=== PATIENT | male | born 1965 | race Caucasian/White ===

== ENCOUNTER 2017-04-21 16:59 | Inpatient (IN) | payer BC ==
[~2017-04-21] VITALS: Ht 172.7 cm; Wt 142.3 kg
[~2017-04-21 16:59] MED LIST: ALLO300T2 PO; EZET10TA38 PO; GLIM4TAB42 PO; INSUINJ37 SC; METO-159 PO; PIOG15TA23 PO; SIMV-13 PO; SITA100T7 PO
[2017-04-21] MEDS ORDERED: ACETAMINOPHEN 500 MG TAB PO ONE ×2 (17:01→17:15)
[2017-04-21 17:44] LABS: Basophils # (auto) 0 uL; Basophils % (auto) 0.5 % (0.0-2.0); Eosinophils # (auto) 0 uL; Eosinophils % (auto) 0.7 % (0.0-7.0); Hematocrit 45.1 % (41.0-53.0); Hemoglobin 15.2 g/dL (13.5-17.5); Lymphocytes # (auto) 0.7 uL; Lymphocytes % (auto) 13.8 % (10.0-50.0); Mean Corpuscular Hemoglobin 30.7 pg (28.0-32.0); Mean Corpuscular Hgb Conc. 33.7 g/dL (32.0-36.0); Mean Platelet Volume 8.6 fL (7.4-10.4); Monocytes # (auto) 0.5 uL; Monocytes % (auto) 11.1 % (0.0-12.0); Neutrophils # (auto) 3.5 uL; Neutrophils % (auto) 73.9 % (37.0-80.0); Platelet Count (auto) 191 10^3/uL (140-450); Red Cell Distribution Width 13.8 % (11.6-16.0); White Blood Cell 4.8 10^3/uL (4.4-10.8)
[2017-04-21 17:58] LABS: BUN/Creatinine Ratio 12.1; Potassium 3.7 mmol/L (3.5-5.1)
[2017-04-21 18:00] LABS: Bilirubin, Total 0.7 mg/dL (0.2-1.0)
[2017-04-21 22:39] LABS: Urine Bilirubin Negative (Negative); Urine Blood 1+ /uL (Negative); Urine Color Yellow (Yellow); Urine Glucose 4+ mg/dL (Normal); Urine Ketone Negative (Negative); Urine Mucus FEW (None Seen); Urine Nitrite Negative (Negative); Urine RBC 4 /hpf (0 - 3); Urine Squamous Epithelial Cell FEW /hpf (<5); Urine Urobilinogen Normal (Negative)
[2017-04-21] MEDS ORDERED: SODIUM CHLORIDE 0.9% 1,000 ML IV ONE (23:30)
[2017-04-21] MEDS ORDERED: cefTRIAXone 1GM/50ML D5W 50 ML IV ONE (23:30)
[2017-04-21] MEDS ORDERED: AZITHROMYCIN 500MG/D5W 250ML 250 ML IV ONE (23:30)
[2017-04-22] VITALS (8 sets, daily range): BP systolic 111–134; BP diastolic 64–73
[2017-04-22] MEDS ORDERED: IPRATROPIUM BROM 0.5 MG/2.5ML INH SOL NEB PRN (01:30)
[2017-04-22] MEDS ORDERED: MORPHINE SULF INJ 2 MG/ML SYRINGE 1ML IV PRN (01:30)
[2017-04-22] MEDS ORDERED: NITROGLYCERIN 0.4 MG SL TAB SL PRN (01:30)
[2017-04-22] MEDS ORDERED: DOCUSATE SOD 100 MG CAP PO PRN (01:30)
[2017-04-22] MEDS ORDERED: DEXTROSE (50%) 50ML SYRG IV PRN (01:30)
[2017-04-22] MEDS ORDERED: PNEUMOCOCCAL VACC POLYS 25 MCG/0.5 ML VIAL IM ONE (01:30)
[2017-04-22] MEDS ORDERED: ONDANSETRON HCL 4 MG/2 ML VIAL IV PRN (01:30)
[2017-04-22] MEDS ORDERED: ALBUTEROL SULF 2.5 MG/0.5ML(0.5%) NEB SOLN NEB PRN (01:30)
[2017-04-22] MEDS ORDERED: LEVOFLOXACIN 750MG 150 ML IV SCH (02:00)
[2017-04-22] MEDS: ACETAMINOPHEN 325 MG TAB PO PRN ×2 (02:12→16:22)
[2017-04-22] MEDS: SODIUM CHLORIDE 0.9% 1,000 ML IV SCH ×2 (02:27→10:35)
[2017-04-22] MEDS: ACCU-CHEK COMFORT CURVE STRIP VI SCH ×4 (06:42→22:13)
[2017-04-22] MEDS: InsuLIN REG 1unit/0.01ml Soln (100units/ml) SC SCH ×4 (06:43→22:28)
[2017-04-22] MEDS ORDERED: FURO40TA4 PO (07:11)
[2017-04-22] MEDS ORDERED: METOPROLOL TARTRATE 50 MG TAB PO SCH (10:00)
[2017-04-22] MEDS: Sitagliptin (Januvia) 100 MG TAB PO SCH (10:00)
[2017-04-22] MEDS: ATORVASTATIN 20 MG TAB PO SCH (10:35)
[2017-04-22] MEDS: ALLOPURINOL 300 MG TAB PO SCH (10:36)
[2017-04-22] MEDS ORDERED: GLIMEPIRIDE 2 MG TAB PO ONE (12:30)
[2017-04-22] MEDS ORDERED: POTASSIUM CHL 10 Meq TABLET PO ONE (12:30)
[2017-04-22] MEDS ORDERED: cefTRIAXone 1GM/50ML D5W 50 ML IV ONE (12:30)
[2017-04-22] MEDS ORDERED: FUROSEMIDE 40 MG/4 ML VIAL IV ONE (12:30)
[2017-04-22] MEDS ORDERED: AZITHROMYCIN 250 MG TAB PO ONE (18:00)
[2017-04-22] MEDS: METOPROLOL TARTRATE 50 MG TAB PO SCH (22:13)
[2017-04-23 05:00] VITALS: BP 120/62
[2017-04-23 05:50] LABS: Basophils # (auto) 0 uL; Basophils % (auto) 0.5 % (0.0-2.0); Eosinophils # (auto) 0.3 uL; Eosinophils % (auto) 5.7 % (0.0-7.0); Hemoglobin 14.4 g/dL (13.5-17.5); Lymphocytes # (auto) 1.4 uL; Lymphocytes % (auto) 27.8 % (10.0-50.0); Mean Corpuscular Hgb Conc. 33.5 g/dL (32.0-36.0); Mean Corpuscular Volume 92.5 fL (80.0-100.0); Monocytes # (auto) 0.7 uL; Monocytes % (auto) 13.6 % (0.0-12.0); Neutrophils # (auto) 2.6 uL; Neutrophils % (auto) 52.4 % (37.0-80.0); Platelet Count (auto) 196 10^3/uL (140-450)
[2017-04-23 06:04] LABS: BUN/Creatinine Ratio 14.2; Calcium 8.8 mg/dL (8.5-10.1); Potassium 4.2 mmol/L (3.5-5.1)
[2017-04-23] MEDS ORDERED: GLIMEPIRIDE 2 MG TAB PO SCH (07:00)
[2017-04-23] MEDS: ACCU-CHEK COMFORT CURVE STRIP VI SCH ×4 (07:11→20:00)
[2017-04-23] MEDS: InsuLIN REG 1unit/0.01ml Soln (100units/ml) SC SCH ×5 (07:12→23:53)
[2017-04-23 08:00] VITALS: BP 138/70
[2017-04-23 08:12] VITALS: BP 138/70
[2017-04-23] MEDS: cefTRIAXone 1GM/50ML D5W 50 ML IV SCH (08:57)
[2017-04-23] MEDS: POTASSIUM CHL 10 Meq TABLET PO SCH (08:57)
[2017-04-23] MEDS: ATORVASTATIN 20 MG TAB PO SCH (08:58)
[2017-04-23] MEDS: Sitagliptin (Januvia) 100 MG TAB PO SCH (08:58)
[2017-04-23] MEDS: METOPROLOL TARTRATE 50 MG TAB PO SCH ×2 (08:58→21:57)
[2017-04-23] MEDS ORDERED: FUROSEMIDE 40 MG/4 ML VIAL IV SCH (10:00)
[2017-04-23] MEDS ORDERED: cefTRIAXone 1GM/50ML D5W 50 ML IV ONE (11:11)
[2017-04-23 11:30] VITALS: BP 119/64
[2017-04-23] MEDS ORDERED: FUROSEMIDE 40 MG TAB PO ONE (12:15)
[2017-04-23] MEDS ORDERED: methylPREDNISolone SOD SUCC 40 MG/ML VL IV ONE (12:15)
[2017-04-23] MEDS ORDERED: GLIMEPIRIDE 2 MG TAB PO ONE (12:15)
[2017-04-23] MEDS: ALLOPURINOL 300 MG TAB PO SCH (12:56)
[2017-04-23] MEDS: AZITHROMYCIN 250 MG TAB PO SCH (12:56)
[2017-04-23 16:30] VITALS: BP 130/90
[2017-04-23] MEDS ORDERED: DEXTROSE (50%) 50ML SYRG IV PRN ×2 (17:15→21:15)
[2017-04-23] MEDS: methylPREDNISolone SOD SUCC 40 MG/ML VL IV SCH (21:56)
[2017-04-23] MEDS: GLIMEPIRIDE 2 MG TAB PO SCH (21:57)
[2017-04-23 22:09] VITALS: BP 131/71
[2017-04-23] MEDS: INSULIN DETEMIR(LEVEMIR) 1unit/0.01ml Soln (100units/ml) SC SCH (22:24)
[2017-04-24] MEDS: InsuLIN REG 1unit/0.01ml Soln (100units/ml) SC SCH ×3 (03:42→12:03)
[2017-04-24] MEDS ORDERED: ACCU-CHEK COMFORT CURVE STRIP VI SCH ×2 (04:00)
[2017-04-24 05:24] VITALS: BP 119/71
[2017-04-24 08:09] VITALS: BP 147/78
[2017-04-24] MEDS: cefTRIAXone 1GM/50ML D5W 50 ML IV SCH (08:35)
[2017-04-24] MEDS: ATORVASTATIN 20 MG TAB PO SCH (08:35)
[2017-04-24] MEDS: methylPREDNISolone SOD SUCC 40 MG/ML VL IV SCH (08:35)
[2017-04-24] MEDS: AZITHROMYCIN 250 MG TAB PO SCH (08:36)
[2017-04-24] MEDS: ALLOPURINOL 300 MG TAB PO SCH (08:36)
[2017-04-24] MEDS: METOPROLOL TARTRATE 50 MG TAB PO SCH (08:37)
[2017-04-24] MEDS: POTASSIUM CHL 10 Meq TABLET PO SCH (08:43)
[2017-04-24] MEDS: ACCU-CHEK COMFORT CURVE STRIP VI SCH ×3 (09:03→14:00)
[2017-04-24] MEDS: GLIMEPIRIDE 2 MG TAB PO SCH (09:03)
[2017-04-24] MEDS: INSULIN DETEMIR(LEVEMIR) 1unit/0.01ml Soln (100units/ml) SC SCH (09:05)
[2017-04-24] MEDS ORDERED: FUROSEMIDE 40 MG TAB PO SCH (10:00)
[2017-04-24] MEDS: Sitagliptin (Januvia) 100 MG TAB PO SCH (10:00)
[2017-04-24 11:28] VITALS: BP 130/77
[2017-04-24 12:10] VITALS: BP 147/78
[2017-04-24 15:27] VITALS: BP 130/77
== END 2017-04-24 15:25 | disposition home or self-care (01) | DRG 871 ==
LOC: ER 16:59 → TELE 17:00 → TELE-WESTW 04-22 03:21 → WEST WING 04-22 14:09
PROVIDERS: ADMIT Emergency Medicine; ATTEND Internal Medicine
PROC: 5A09457 Assistance with Respiratory Ventilation, 24-96 Consecutive Hours, Continuous Positive Airway Pressure (ICD-10-PCS; principal; 2017-04-21)
DX: A41.9 Sepsis, unspecified organism (principal); J18.9 Pneumonia, unspecified organism; I50.33 Acute on chronic diastolic (congestive) heart failure; Z68.42 Body mass index [BMI] 45.0-49.9, adult; I13.0 Hypertensive heart and chronic kidney disease with heart failure and stage 1 through stage 4 chronic kidney disease, or unspecified chronic kidney disease; F17.210 Nicotine dependence, cigarettes, uncomplicated; M10.9 Gout, unspecified; Z83.3 Family history of diabetes mellitus; E11.22 Type 2 diabetes mellitus with diabetic chronic kidney disease; E66.01 Morbid (severe) obesity due to excess calories; E78.5 Hyperlipidemia, unspecified; G47.30 Sleep apnea, unspecified; N18.3 Chronic kidney disease, stage 3 (moderate); Z90.89 Acquired absence of other organs; Z71.89 Other specified counseling; Z23 Encounter for immunization
CPT/HCPCS: 36415; 71010; 80048; 80053; 81001; 82962; 83036; 83605; 85025; 87040; 87070; 87081; 87205; 93306; 94660; 96365; 96375; J0696; J1815; J1956

== ENCOUNTER → 2018-03-18 | Day surgery (SDC) | payer BC ==
[2018-03-16 12:44] LABS: Urine WBC None Seen /hpf (0 - 3)
[2018-03-16 12:59] LABS: Basophils # (auto) 0.1 uL; Basophils % (auto) 1.2 % (0.0-2.0); Eosinophils # (auto) 0.3 uL; Eosinophils % (auto) 4.9 % (0.0-7.0); Hematocrit 45.2 % (41.0-53.0); Lymphocytes # (auto) 1.4 uL; Lymphocytes % (auto) 22.2 % (10.0-50.0); Mean Corpuscular Hemoglobin 31.3 pg (28.0-32.0); Mean Corpuscular Hgb Conc. 33.3 g/dL (32.0-36.0); Mean Corpuscular Volume 94.2 fL (80.0-100.0); Monocytes # (auto) 0.5 uL; Monocytes % (auto) 7.2 % (0.0-12.0); Neutrophils # (auto) 4.1 uL; Neutrophils % (auto) 64.5 % (37.0-80.0); Nucleated Red Blood Cells % 0.2 %; Platelet Count (auto) 178 10^3/uL (140-450); Red Cell Distribution Width 14.2 % (11.8-14.3); White Blood Cell 6.4 10^3/uL (4.4-10.8)
[2018-03-16 13:17] LABS: Urine Bacteria NONE SEEN /hpf (None Seen); Urine Blood Negative /uL (Negative)
[2018-03-16 13:18] LABS: INR 0.97 (0.9-1.15); Partial Thromboplastin Time 27.4 sec (22.64-33.71); Prothrombin Time 10.6 sec (9.37-12.3)
[2018-03-16 13:22] LABS: Albumin 3.5 g/dL (3.4-5.0); BUN/Creatinine Ratio 13.4; Bilirubin, Total 0.6 mg/dL (0.2-1.0); Potassium 4.8 mmol/L (3.5-5.1); Total Protein 7.6 g/dL (6.4-8.2)
[~2018-03-18] VITALS: Ht 172.7 cm; Wt 149.7 kg
[~2018-03-18] MED LIST changes: +ACCU-CHEK COMFORT CURVE STRIP VI ONE; +ASPI81TA27 PO; +BUPIVACAINE 0.25% INJ 50ML VIAL ONE; +CYCL1TAB18 PO; -EZET10TA38 PO; +FURO40TA4 PO; +GLYCOPYRROLATE 0.2 MG/ML 1ML VIAL ONE; +IBUP800T24 PO; -INSUINJ37 SC; +InsuLIN REG 1unit/0.01ml Soln (100units/ml) ONE; +LIDOCAINE 1% (LOCAL ANESTH.) PF 5ml SDV ONE; +METOCLOPRAMIDE HCL 5MG/ml INJ 2ml VIAL IV ONE; +METOCLOPRAMIDE HCL 5MG/ml INJ 2ml VIAL ONE; +MIDAZOLAM HCL 1MG/1ML-2 ML VIAL ONE; +MORPHINE SULFATE INJECTION 1 ML ONE; +NEOSTIGMINE 1 MG/ML INJ (10mg/10ML VIAL) ONE; +PROPOFOL 10 MG/ML 20 ML IV ONE; +ROCURONIUM 10MG/ML 10ML VIAL IV ONE; +SUCCINYLCHOLINE CHLORIDE 20 MG/ML 10ML VIAL IV ONE; +ceFAZolin 1GM/50ML 50 ML IV ONE; +fentaNYL CITRATE 100 MCG/2 ML VL ONE
[2018-03-18] MEDS: MORPHINE SULFATE 8mg/ml INJ SDV IV PRN ×4 (12:17→13:03)
[2018-03-18 12:47] VITALS: BP 128/85
== END ==
LOC: SUR 08:16
PROVIDERS: ATTEND Surgery
DX: K42.9 Umbilical hernia without obstruction or gangrene (principal); E66.01 Morbid (severe) obesity due to excess calories; N18.3 Chronic kidney disease, stage 3 (moderate); E11.22 Type 2 diabetes mellitus with diabetic chronic kidney disease; I12.9 Hypertensive chronic kidney disease with stage 1 through stage 4 chronic kidney disease, or unspecified chronic kidney disease; G47.33 Obstructive sleep apnea (adult) (pediatric); E78.5 Hyperlipidemia, unspecified; Z91.02 Food additives allergy status; Z88.8 Allergy status to other drugs, medicaments and biological substances; Z68.43 Body mass index [BMI] 50.0-59.9, adult; Z87.891 Personal history of nicotine dependence
CPT/HCPCS: 36415; 49585; 80053; 81001; 82962; 85025; 85610; 85730; J0330; J0690; J1815; J2250; J2270; J2704; J2765; J3010; J3490

== ENCOUNTER → 2018-08-24 | Outpatient (CLI) | payer BC ==
[~2018-08-24] MED LIST changes: -ACCU-CHEK COMFORT CURVE STRIP VI ONE; -BUPIVACAINE 0.25% INJ 50ML VIAL ONE; -GLYCOPYRROLATE 0.2 MG/ML 1ML VIAL ONE; -InsuLIN REG 1unit/0.01ml Soln (100units/ml) ONE; -LIDOCAINE 1% (LOCAL ANESTH.) PF 5ml SDV ONE; -METOCLOPRAMIDE HCL 5MG/ml INJ 2ml VIAL IV ONE; -METOCLOPRAMIDE HCL 5MG/ml INJ 2ml VIAL ONE; -MIDAZOLAM HCL 1MG/1ML-2 ML VIAL ONE; -MORPHINE SULFATE INJECTION 1 ML ONE; -NEOSTIGMINE 1 MG/ML INJ (10mg/10ML VIAL) ONE; -PROPOFOL 10 MG/ML 20 ML IV ONE; -ROCURONIUM 10MG/ML 10ML VIAL IV ONE; -SUCCINYLCHOLINE CHLORIDE 20 MG/ML 10ML VIAL IV ONE; -ceFAZolin 1GM/50ML 50 ML IV ONE; -fentaNYL CITRATE 100 MCG/2 ML VL ONE
[2018-08-24 08:42] LABS: Basophils # (auto) 0.1 uL; Basophils % (auto) 0.8 % (0.0-2.0); Eosinophils # (auto) 0.4 uL; Eosinophils % (auto) 6.1 % (0.0-7.0); Hematocrit 44.8 % (41.0-53.0); Lymphocytes # (auto) 1.9 uL; Lymphocytes % (auto) 28.2 % (10.0-50.0); Mean Corpuscular Hemoglobin 31.5 pg (28.0-32.0); Mean Corpuscular Hgb Conc. 33.5 g/dL (32.0-36.0); Mean Corpuscular Volume 93.9 fL (80.0-100.0); Monocytes # (auto) 0.6 uL; Monocytes % (auto) 8.6 % (0.0-12.0); Neutrophils # (auto) 3.7 uL; Neutrophils % (auto) 56.3 % (37.0-80.0); Platelet Count (auto) 176 10^3/uL (140-450); Red Blood Cells 4.77 10^6/uL (4.5-5.90); Red Cell Distribution Width 14.1 % (11.8-14.3); White Blood Cell 6.7 10^3/uL (4.4-10.8)
[2018-08-24 08:57] LABS: Albumin 3.4 g/dL (3.4-5.0); BUN/Creatinine Ratio 16.7; Bilirubin, Total 0.6 mg/dL (0.2-1.0); Calcium 8.9 mg/dL (8.5-10.1); Potassium 5.3 mmol/L (3.5-5.1); Total Protein 7.4 g/dL (6.4-8.2)
== END | disposition home or self-care (01) ==
LOC: LAB 07:31
PROVIDERS: ATTEND Family Medicine
DX: I10 Essential (primary) hypertension (principal); E11.65 Type 2 diabetes mellitus with hyperglycemia; E66.01 Morbid (severe) obesity due to excess calories; Z87.891 Personal history of nicotine dependence
CPT/HCPCS: 36415; 80053; 80061; 82607; 83036; 84443; 85025

== ENCOUNTER → 2019-04-07 | Outpatient (CLI) | payer BC ==
[2019-04-07 08:15] LABS: Urine Bacteria NONE SEEN /hpf (None Seen); Urine Blood Negative /uL (Negative); Urine Specific Gravity 1.017 (1.001-1.035); Urine WBC 1 /hpf (0 - 3)
[2019-04-07 08:17] LABS: Basophils # (auto) 0.1 uL; Basophils % (auto) 1.1 % (0.0-2.0); Eosinophils # (auto) 0.3 uL; Hematocrit 44.9 % (41.0-53.0); Hemoglobin 15.3 g/dL (13.5-17.5); Lymphocytes # (auto) 1.5 uL; Mean Corpuscular Hemoglobin 31.6 pg (28.0-32.0); Mean Corpuscular Hgb Conc. 34.2 g/dL (32.0-36.0); Mean Corpuscular Volume 92.5 fL (80.0-100.0); Monocytes # (auto) 0.5 uL; Monocytes % (auto) 8.5 % (0.0-12.0); Neutrophils # (auto) 3.1 uL; Neutrophils % (auto) 56.4 % (37.0-80.0); Nucleated Red Blood Cells % 0.1 %; Platelet Count (auto) 159 10^3/uL (140-450); Red Blood Cells 4.85 10^6/uL (4.5-5.90); Red Cell Distribution Width 14.2 % (11.8-14.3); White Blood Cell 5.5 10^3/uL (4.4-10.8)
[2019-04-07 08:54] LABS: Albumin 3.5 g/dL (3.4-5.0); BUN/Creatinine Ratio 19.4; Bilirubin, Total 0.6 mg/dL (0.2-1.0); Calcium 9.5 mg/dL (8.5-10.1); Total Protein 7.6 g/dL (6.4-8.2)
== END | disposition home or self-care (01) ==
LOC: LAB 07:14
PROVIDERS: ATTEND Family Medicine
DX: E11.69 Type 2 diabetes mellitus with other specified complication (principal); E67.8 Other specified hyperalimentation; I10 Essential (primary) hypertension; E66.01 Morbid (severe) obesity due to excess calories; E78.49 Other hyperlipidemia; E55.9 Vitamin D deficiency, unspecified
CPT/HCPCS: 36415; 80053; 80061; 81001; 82043; 82306; 82607; 83036; 84443; 85025

== ENCOUNTER → 2019-07-23 | Outpatient (CLI) | payer BC ==
[~2019-07-23] MED LIST changes: +ASPI-404 PO; -ASPI81TA27 PO
== END | disposition home or self-care (01) ==
LOC: LAB 07:08
PROVIDERS: ATTEND Internal Medicine
DX: Z12.5 Encounter for screening for malignant neoplasm of prostate (principal); E11.9 Type 2 diabetes mellitus without complications
CPT/HCPCS: 36415; 83036; 84153

== ENCOUNTER → 2019-10-13 | Outpatient (CLI) | payer BC | END | disposition home or self-care (01) | LOC: LAB 07:11 | PROVIDERS: ATTEND Internal Medicine | DX: E11.9 Type 2 diabetes mellitus without complications (principal); I10 Essential (primary) hypertension; E78.5 Hyperlipidemia, unspecified; Z87.891 Personal history of nicotine dependence; Z91.018 Allergy to other foods; Z91.048 Other nonmedicinal substance allergy status | CPT/HCPCS: 36415; 83036 ==

== ENCOUNTER → 2020-01-24 | Outpatient (CLI) | payer BC ==
[2020-01-24 09:00] LABS: Potassium 5.2 mmol/L (3.5-5.1)
[2020-01-24 09:14] LABS: Albumin 3.4 g/dL (3.4-5.0); BUN/Creatinine Ratio 14.3; Bilirubin, Total 0.5 mg/dL (0.2-1.0); Calcium 9.2 mg/dL (8.5-10.1); Total Protein 7.4 g/dL (6.4-8.2)
== END | disposition home or self-care (01) ==
LOC: LAB 07:37
PROVIDERS: ATTEND Internal Medicine
DX: Z12.11 Encounter for screening for malignant neoplasm of colon (principal); E11.22 Type 2 diabetes mellitus with diabetic chronic kidney disease; N18.3 Chronic kidney disease, stage 3 (moderate)
CPT/HCPCS: 36415; 80053; 83036

== ENCOUNTER → 2020-07-10 | Outpatient (CLI) | payer BC ==
[~2020-07-10] MED LIST changes: -ASPI-404 PO; +ASPI-543 PO; +CYCL10TA6 PO; -CYCL1TAB18 PO
[2020-07-10 07:08] LABS: Albumin 3.3 g/dL (3.4-5.0); BUN/Creatinine Ratio 13.9; Calcium 8.9 mg/dL (8.5-10.1); Potassium 4.2 mmol/L (3.5-5.1)
[2020-07-10 07:12] LABS: Bilirubin, Total 0.3 mg/dL (0.2-1.0); Total Protein 7.2 g/dL (6.4-8.2)
== END | disposition home or self-care (01) ==
LOC: LAB 06:40
PROVIDERS: ATTEND Internal Medicine
DX: E11.9 Type 2 diabetes mellitus without complications (principal); I10 Essential (primary) hypertension; E78.5 Hyperlipidemia, unspecified
CPT/HCPCS: 36415; 80053; 80061; 82043; 83036

== ENCOUNTER → 2020-08-10 | Outpatient (CLI) | payer BC ==
[2020-08-10 07:39] LABS: Calcium 9.2 mg/dL (8.5-10.1); Potassium 5.2 mmol/L (3.5-5.1)
[2020-08-10 07:41] LABS: BUN/Creatinine Ratio 18.4
== END | disposition home or self-care (01) ==
LOC: LAB 07:06
PROVIDERS: ATTEND Internal Medicine
DX: Z12.5 Encounter for screening for malignant neoplasm of prostate (principal); E11.9 Type 2 diabetes mellitus without complications; I10 Essential (primary) hypertension; M79.89 Other specified soft tissue disorders
CPT/HCPCS: 36415; 80048; 83880; 84153

== ENCOUNTER → 2020-10-13 | Outpatient (CLI) | payer BC ==
[2020-10-13 09:55] LABS: Potassium 4.4 mmol/L (3.5-5.1)
[2020-10-13 10:02] LABS: BUN/Creatinine Ratio 18.3; Calcium 9.3 mg/dL (8.5-10.1)
== END | disposition home or self-care (01) ==
LOC: LAB 07:06
PROVIDERS: ATTEND Internal Medicine
DX: E11.9 Type 2 diabetes mellitus without complications (principal)
CPT/HCPCS: 36415; 80048; 83036

== ENCOUNTER → 2021-01-29 | Outpatient (CLI) | payer BC ==
[~2021-01-29] MED LIST changes: -IBUP800T24 PO; +IBUP800T27 PO
[2021-01-29 07:53] LABS: Calcium 9.5 mg/dL (8.5-10.1)
[2021-01-29 08:46] LABS: BUN/Creatinine Ratio 16.4
== END | disposition home or self-care (01) ==
LOC: LAB 07:05
PROVIDERS: ATTEND Internal Medicine
DX: E11.9 Type 2 diabetes mellitus without complications (principal); I10 Essential (primary) hypertension; M25.511 Pain in right shoulder
CPT/HCPCS: 36415; 80048; 83036; 85652

== ENCOUNTER → 2021-06-29 | Outpatient (CLI) | payer BC | END | disposition home or self-care (01) | LOC: LAB 12:12 | PROVIDERS: ATTEND Ophthalmology | DX: D23.111 Other benign neoplasm of skin of right upper eyelid, including canthus (principal) ==

== ENCOUNTER → 2021-08-27 | Outpatient (CLI) | payer BC | END | disposition home or self-care (01) | LOC: LAB 06:45 | PROVIDERS: ATTEND Internal Medicine | DX: E11.9 Type 2 diabetes mellitus without complications (principal) | CPT/HCPCS: 36415; 83036; 84153 ==

== ENCOUNTER → 2021-10-23 | Outpatient (CLI) | payer BC ==
[~2021-10-23] MED LIST changes: +CYCL-839 PO; -CYCL10TA6 PO
[2021-10-23 08:08] LABS: Potassium 4.6 mmol/L (3.5-5.1)
[2021-10-23 08:17] LABS: Calcium 9.4 mg/dL (8.5-10.1)
== END | disposition home or self-care (01) ==
LOC: LAB 06:35
PROVIDERS: ATTEND Internal Medicine
DX: E11.9 Type 2 diabetes mellitus without complications (principal)
CPT/HCPCS: 36415; 80048

== ENCOUNTER → 2021-12-17 | Outpatient (CLI) | payer BC ==
[2021-12-17 10:30] LABS: Calcium 9.6 mg/dL (8.5-10.1); Potassium 4.9 mmol/L (3.5-5.1)
[2021-12-17 10:33] LABS: BUN/Creatinine Ratio 20.5
== END | disposition home or self-care (01) ==
LOC: LAB 08:54
PROVIDERS: ATTEND Internal Medicine
DX: E11.9 Type 2 diabetes mellitus without complications (principal)
CPT/HCPCS: 36415; 80048; 83036

== ENCOUNTER → 2022-01-07 | Outpatient (CLI) | payer BC | END | disposition home or self-care (01) | LOC: LAB 06:40 | PROVIDERS: ATTEND Podiatrist | DX: M65.871 Other synovitis and tenosynovitis, right ankle and foot (principal) | CPT/HCPCS: 36415; 82565; 84520 ==

== ENCOUNTER → 2022-01-17 | Day surgery (SDC) | payer BC ==
[2022-01-16 08:07] LABS: Urine Bacteria NONE SEEN /hpf (None Seen); Urine Blood Negative /uL (Negative); Urine Specific Gravity 1.019 (1.001-1.035); Urine WBC <1 /hpf (0 - 3)
[2022-01-16 08:16] LABS: INR 1.05 (0.9-1.15); Partial Thromboplastin Time 28.6 sec (23.6-33.0)
[2022-01-16 08:55] LABS: Basophils # (auto) 0 10 ^3/uL (0-0.2); Basophils % (auto) 0.7 % (0.0-2.0); Eosinophils # (auto) 0.4 10 ^3/uL (0-0.8); Eosinophils % (auto) 6.5 % (0.0-7.0); Hematocrit 43.3 % (41.0-53.0); Hemoglobin 14.3 g/dL (13.5-17.5); Lymphocytes # (auto) 1.4 10 ^3/uL (0.4-5.4); Lymphocytes % (auto) 21.9 % (10.0-50.0); Mean Corpuscular Hemoglobin 31.6 pg (28.0-32.0); Mean Corpuscular Hgb Conc. 33.1 g/dL (32.0-36.0); Mean Corpuscular Volume 95.6 fL (80.0-100.0); Monocytes # (auto) 0.7 10 ^3/uL (0-1.3); Monocytes % (auto) 11.4 % (0.0-12.0); Neutrophils # (auto) 3.8 10 ^3/uL (1.6-8.6); Neutrophils % (auto) 59.5 % (37.0-80.0); Nucleated Red Blood Cells % 0.1 %; Red Blood Cells 4.54 10^6/uL (4.5-5.90); Red Cell Distribution Width 14.3 % (11.8-14.3); White Blood Cell 6.5 10^3/uL (4.4-10.8)
[2022-01-16 09:48] LABS: Potassium 4.6 mmol/L (3.5-5.1)
[2022-01-16 09:54] LABS: Albumin 3.6 g/dL (3.4-5.0); BUN/Creatinine Ratio 15.2; Bilirubin, Total 0.5 mg/dL (0.2-1.0); Calcium 9.6 mg/dL (8.5-10.1); Total Protein 7.9 g/dL (6.4-8.2)
[~2022-01-17] VITALS: Ht 172.7 cm; Wt 156.5 kg
[~2022-01-17] MED LIST changes: -CYCL-839 PO; +DexAMETHasone SOD PHOS 10MG/1ML VIAL INJ ONE; +EPINEPHrine HCL 1 MG/1 ML AMP ONE; +GABA300C10 PO; -IBUP800T27 PO; +INS7030I SC; +INSLANTI SC; +LABETALOL HCL 5 MG/ML 4ML SYRINGE IV PRN; +LIDOCAINE 1% HCL (LOCAL ANESTH.) INJ 20ML MDV ONE; +LISI2.5T47 PO; +MIDAZOLAM HCL 2MG/2ML 2ml VIAL (1mg/ml) IV PRN; +MIDAZOLAM HCL 2MG/2ML 2ml VIAL (1mg/ml) ONE; +MORPHINE SULFATE 4 MG/ML SYR/VIAL IV PRN; +NIFE1TAB31 PO; +ONDANSETRON HCL 4 MG/2 ML VIAL IV PRN; +PROPOFOL 10 MG/ML 20 ML IV ONE; +ceFAZolin 1GM/50ML 150 ML IV ONE; +ePHEDrine SULFATE 50 MG/ML AMP IV PRN; +fentaNYL CITRATE 100 MCG/2 ML VL ONE; +hydrALAZINE HCL 20 MG/ML VL IV PRN
[2022-01-17 13:30] VITALS: BP 111/67
== END | disposition home or self-care (01) ==
LOC: SUR 08:47
PROVIDERS: ATTEND Urology
DX: A63.0 Anogenital (venereal) warts (principal); I10 Essential (primary) hypertension; E11.9 Type 2 diabetes mellitus without complications; E66.01 Morbid (severe) obesity due to excess calories; E11.40 Type 2 diabetes mellitus with diabetic neuropathy, unspecified; E78.5 Hyperlipidemia, unspecified; M10.9 Gout, unspecified; F17.200 Nicotine dependence, unspecified, uncomplicated; G47.30 Sleep apnea, unspecified; Z98.890 Other specified postprocedural states; Z20.822 Contact with and (suspected) exposure to COVID-19; Z68.32 Body mass index [BMI] 32.0-32.9, adult; Z79.899 Other long term (current) drug therapy; Z82.49 Family history of ischemic heart disease and other diseases of the circulatory system; Z83.42 Family history of familial hypercholesterolemia; Z82.5 Family history of asthma and other chronic lower respiratory diseases; Z82.69 Family history of other diseases of the musculoskeletal system and connective tissue; Z83.3 Family history of diabetes mellitus; Z83.2 Family history of diseases of the blood and blood-forming organs and certain disorders involving the immune mechanism
CPT/HCPCS: 36415; 54057; 80053; 81001; 82043; 82962; 85025; 85610; 85730; 88305; J0171; J0690; J1100; J2001; J2250; J2704; J3010; U0003

== ENCOUNTER → 2022-06-11 | Outpatient (CLI) | payer BC ==
[~2022-06-11] MED LIST changes: +DAPA1TAB4 PO; -DexAMETHasone SOD PHOS 10MG/1ML VIAL INJ ONE; -EPINEPHrine HCL 1 MG/1 ML AMP ONE; -LABETALOL HCL 5 MG/ML 4ML SYRINGE IV PRN; -LIDOCAINE 1% HCL (LOCAL ANESTH.) INJ 20ML MDV ONE; +MET50T PO; -MIDAZOLAM HCL 2MG/2ML 2ml VIAL (1mg/ml) IV PRN; -MIDAZOLAM HCL 2MG/2ML 2ml VIAL (1mg/ml) ONE; -MORPHINE SULFATE 4 MG/ML SYR/VIAL IV PRN; +NIFE1TAB30 PO; -ONDANSETRON HCL 4 MG/2 ML VIAL IV PRN; -PROPOFOL 10 MG/ML 20 ML IV ONE; -ceFAZolin 1GM/50ML 150 ML IV ONE; -ePHEDrine SULFATE 50 MG/ML AMP IV PRN; -fentaNYL CITRATE 100 MCG/2 ML VL ONE; -hydrALAZINE HCL 20 MG/ML VL IV PRN
[2022-06-11 09:10] LABS: Albumin 3.7 g/dL (3.4-5.0); Calcium 9.8 mg/dL (8.5-10.1)
[2022-06-11 09:14] LABS: BUN/Creatinine Ratio 16.1; Potassium 4.2 mmol/L (3.5-5.1); Total Protein 7.6 g/dL (6.4-8.2)
[2022-06-11 09:16] LABS: Bilirubin, Total 0.6 mg/dL (0.2-1.0)
== END | disposition home or self-care (01) ==
LOC: LAB 07:43
PROVIDERS: ATTEND Internal Medicine
DX: Z00.00 Encounter for general adult medical examination without abnormal findings (principal)
CPT/HCPCS: 36415; 80053; 82043; 83036

== ENCOUNTER 2022-06-13 09:47 | Day surgery (SDC) | payer BC ==
[2022-06-11 09:11] LABS: Urine WBC None Seen /hpf (0 - 3)
[2022-06-11 09:13] LABS: Basophils # (auto) 0.1 10 ^3/uL (0-0.2); Eosinophils # (auto) 0.4 10 ^3/uL (0-0.8); Eosinophils % (auto) 5.2 % (0.0-7.0); Hematocrit 46.1 % (41.0-53.0); Lymphocytes # (auto) 1.4 10 ^3/uL (0.4-5.4); Lymphocytes % (auto) 20.1 % (10.0-50.0); Mean Corpuscular Hemoglobin 30.8 pg (28.0-32.0); Mean Corpuscular Hgb Conc. 32.5 g/dL (32.0-36.0); Mean Corpuscular Volume 94.7 fL (80.0-100.0); Monocytes # (auto) 0.7 10 ^3/uL (0-1.3); Neutrophils # (auto) 4.4 10 ^3/uL (1.6-8.6); Neutrophils % (auto) 63.7 % (37.0-80.0); Red Blood Cells 4.87 10^6/uL (4.5-5.90); Red Cell Distribution Width 14.4 % (11.8-14.3); Urine Bacteria NONE SEEN /hpf (None Seen); Urine Blood Negative /uL (Negative); Urine Specific Gravity 1.014 (1.001-1.035); White Blood Cell 6.9 10^3/uL (4.4-10.8)
[2022-06-11 09:34] LABS: INR 0.98 (0.9-1.15); Partial Thromboplastin Time 28.5 sec (24.6-33.4)
[2022-06-11 09:35] LABS: Albumin 3.7 g/dL (3.4-5.0); Calcium 9.7 mg/dL (8.5-10.1); Potassium 4.4 mmol/L (3.5-5.1)
[2022-06-11 09:38] LABS: BUN/Creatinine Ratio 15.8
[2022-06-11 09:40] LABS: Bilirubin, Total 0.6 mg/dL (0.2-1.0); Total Protein 7.9 g/dL (6.4-8.2)
[~2022-06-13] VITALS: Ht 172.7 cm; Wt 146.1 kg
[~2022-06-13 09:47] MED LIST changes: -INS7030I SC; -METO-159 PO; -NIFE1TAB31 PO
[2022-06-13] MEDS ORDERED: ceFAZolin 1GM/50ML 100 ML IV ONE (10:53)
[2022-06-13] MEDS ORDERED: MIDAZOLAM HCL 2MG/2ML 2ml VIAL (1mg/ml) ONE (14:04)
[2022-06-13] MEDS ORDERED: fentaNYL CITRATE 100 MCG/2 ML VL ONE (14:04)
[2022-06-13] MEDS ORDERED: PROPOFOL 10 MG/ML 20 ML IV ONE (14:46)
[2022-06-13 15:30] VITALS: BP 114/68
[2022-06-13] MEDS ORDERED: SUCCINYLCHOLINE CHLORIDE 20 MG/ML 10ML VIAL IV ONE (16:55)
== END 2022-06-13 15:45 | disposition home or self-care (01) ==
LOC: SUR 09:47
PROVIDERS: ATTEND Urology
DX: A63.0 Anogenital (venereal) warts (principal); I10 Essential (primary) hypertension; E11.9 Type 2 diabetes mellitus without complications; E78.5 Hyperlipidemia, unspecified; M10.9 Gout, unspecified; E66.01 Morbid (severe) obesity due to excess calories; F17.200 Nicotine dependence, unspecified, uncomplicated; G47.30 Sleep apnea, unspecified; Z68.42 Body mass index [BMI] 45.0-49.9, adult; Z20.822 Contact with and (suspected) exposure to COVID-19; Z82.49 Family history of ischemic heart disease and other diseases of the circulatory system; Z83.6 Family history of other diseases of the respiratory system; Z82.69 Family history of other diseases of the musculoskeletal system and connective tissue; Z83.2 Family history of diseases of the blood and blood-forming organs and certain disorders involving the immune mechanism; Z81.0 Family history of intellectual disabilities
CPT/HCPCS: 36415; 54057; 80053; 81001; 82962; 85025; 85610; 85730; J0330; J0690; J2250; J2704; J3010; U0003

== ENCOUNTER → 2022-08-20 | Outpatient (CLI) | payer BC ==
[2022-08-20 07:49] LABS: BUN/Creatinine Ratio 16.6; Calcium 9.8 mg/dL (8.5-10.1)
== END | disposition home or self-care (01) ==
LOC: LAB 06:49
PROVIDERS: ATTEND Internal Medicine
DX: E11.9 Type 2 diabetes mellitus without complications (principal)
CPT/HCPCS: 36415; 80048; 83036

== ENCOUNTER → 2023-03-05 | Outpatient (CLI) | payer BC ==
[2023-03-05 07:52] LABS: Albumin 3.5 g/dL (3.4-5.0); Calcium 9.5 mg/dL (8.5-10.1); Potassium 4.2 mmol/L (3.5-5.1)
[2023-03-05 07:59] LABS: BUN/Creatinine Ratio 17.2 (10.0-20.0); Bilirubin, Total 0.3 mg/dL (0.2-1.0)
== END | disposition home or self-care (01) ==
LOC: LAB 07:00
PROVIDERS: ATTEND Internal Medicine
DX: E11.9 Type 2 diabetes mellitus without complications (principal); E78.5 Hyperlipidemia, unspecified
CPT/HCPCS: 36415; 80053; 80061; 82043; 83036

== ENCOUNTER → 2023-03-24 | Outpatient (CLI) | payer BC ==
[2023-03-24 11:06] LABS: Potassium 4.5 mmol/L (3.5-5.1)
[2023-03-24 11:11] LABS: Calcium 9.9 mg/dL (8.5-10.1); Uric Acid 4.7 mg/dL (3.5-7.2)
== END | disposition home or self-care (01) ==
LOC: LAB 09:25
PROVIDERS: ATTEND Internal Medicine
DX: E11.9 Type 2 diabetes mellitus without complications (principal); M79.642 Pain in left hand
CPT/HCPCS: 36415; 80048; 84550; 85652; 86431

== ENCOUNTER → 2023-07-21 | Outpatient (CLI) | payer BC ==
[~2023-07-21] MED LIST changes: +GABA-1250 PO; -GABA300C10 PO; -SIMV-13 PO; +SIMV40TA18 PO
[2023-07-21 07:43] LABS: Calcium 9.2 mg/dL (8.5-10.1); Potassium 4.6 mmol/L (3.5-5.1)
[2023-07-21 07:49] LABS: BUN/Creatinine Ratio 15.6 (10.0-20.0)
== END | disposition home or self-care (01) ==
LOC: LAB 06:46
PROVIDERS: ATTEND Internal Medicine
DX: E11.22 Type 2 diabetes mellitus with diabetic chronic kidney disease (principal); N18.30 Chronic kidney disease, stage 3 unspecified; E78.5 Hyperlipidemia, unspecified
CPT/HCPCS: 36415; 80048; 80061; 83036

== ENCOUNTER → 2023-12-03 | Outpatient (CLI) | payer BC ==
[2023-12-03 07:32] LABS: Anion Gap 7 (5-15); Carbon Dioxide 26 mmol/L (20-30); Chloride 105 mmol/L (98-107); Potassium 4.6 mmol/L (3.5-5.1); Sodium 138 mmol/L (136-145)
[2023-12-03 07:33] LABS: Calcium 9.4 mg/dL (8.5-10.1)
[2023-12-03 07:38] LABS: BUN/Creatinine Ratio 11.3 (10.0-20.0); Blood Urea Nitrogen 14 mg/dL (9-23); Glucose 212 mg/dL (74-106); Triglycerides 260 mg/dL (< 150)
[2023-12-03 07:39] LABS: LDL Cholesterol 50 mg/dL (< 100)
[2023-12-03 07:40] LABS: Cholesterol 110 mg/dL (< 200); HDL Cholesterol 33 mg/dL (40-59)
[2023-12-03 08:34] LABS: Creatinine, Urine 78.42 mg/dL (30.0-125.0)
== END | disposition home or self-care (01) ==
LOC: LAB 06:44
PROVIDERS: ATTEND Internal Medicine
DX: E11.22 Type 2 diabetes mellitus with diabetic chronic kidney disease (principal); N18.30 Chronic kidney disease, stage 3 unspecified
CPT/HCPCS: 36415; 80048; 80061; 82043; 82570; 83036

== ENCOUNTER → 2024-01-26 | Outpatient (CLI) | payer BC ==
[2024-01-26 08:02] LABS: Anion Gap 7 (5-15); Calcium 9.5 mg/dL (8.5-10.1); Carbon Dioxide 25 mmol/L (20-30); Chloride 104 mmol/L (98-107); Potassium 4.8 mmol/L (3.5-5.1); Sodium 136 mmol/L (136-145)
[2024-01-26 08:08] LABS: BUN/Creatinine Ratio 13.2 (10.0-20.0); Blood Urea Nitrogen 18 mg/dL (9-23); Glucose 236 mg/dL (74-106)
== END | disposition home or self-care (01) ==
LOC: LAB 06:48
PROVIDERS: ATTEND Internal Medicine
DX: E11.9 Type 2 diabetes mellitus without complications (principal)
CPT/HCPCS: 36415; 80048

== ENCOUNTER → 2024-03-22 | Outpatient (CLI) | payer BC | END | disposition home or self-care (01) | LOC: XYW 13:24 | PROVIDERS: ATTEND Internal Medicine | DX: I51.89 Other ill-defined heart diseases (principal); R60.0 Localized edema | CPT/HCPCS: 93306 ==

== ENCOUNTER → 2024-03-26 | Outpatient (CLI) | payer BC | END | disposition home or self-care (01) | LOC: LAB 15:00 | PROVIDERS: ATTEND Family Medicine | DX: D48.5 Neoplasm of uncertain behavior of skin (principal) ==

== ENCOUNTER → 2024-03-30 | Outpatient (CLI) | payer BC ==
[2024-03-30 15:24] LABS: Basophils # (auto) 0.1 10 ^3/uL (0-0.2); Eosinophils # (auto) 0.4 10 ^3/uL (0-0.8); Eosinophils % (auto) 4.1 % (0.0-7.0); Hematocrit 41.7 % (41.0-53.0); Hemoglobin 14.1 g/dL (13.5-17.5); Lymphocytes % (auto) 21.7 % (10.0-50.0); Mean Corpuscular Hemoglobin 32.6 pg (28.0-32.0); Mean Corpuscular Hgb Conc. 33.9 g/dL (32.0-36.0); Mean Corpuscular Volume 96.2 fL (80.0-100.0); Monocytes % (auto) 11.1 % (0.0-12.0); Neutrophils # (auto) 5.7 10 ^3/uL (1.6-8.6); Neutrophils % (auto) 62.1 % (37.0-80.0); Nucleated Red Blood Cells % 0.1 %; Red Blood Cells 4.33 10^6/uL (4.5-5.90); Red Cell Distribution Width 13.3 % (11.8-14.3); White Blood Cell 9.2 10^3/uL (4.4-10.8)
[2024-03-30 15:40] LABS: Alanine Aminotransferase 28 U/L (7-40); Albumin 4.4 g/dL (3.2-4.8); Alkaline Phosphatase 61 U/L (46-116); Anion Gap 4 (5-15); Aspartate Aminotransferase 22 U/L (13-40); BUN/Creatinine Ratio 15.3 (10.0-20.0); Bilirubin, Total 0.5 mg/dL (0.2-1.0); Blood Urea Nitrogen 20 mg/dL (9-23); Calcium 10.1 mg/dL (8.7-10.4); Carbon Dioxide 27 mmol/L (20-30); Chloride 103 mmol/L (98-107); Glucose 167 mg/dL (74-106); Potassium 4.4 mmol/L (3.5-5.1); Sodium 134 mmol/L (136-145); Total Protein 7.4 g/dL (5.7-8.2)
== END | disposition home or self-care (01) ==
LOC: LAB 15:04
PROVIDERS: ATTEND Ophthalmology
DX: H25.12 Age-related nuclear cataract, left eye (principal)
CPT/HCPCS: 36415; 80053; 85025; 87086

== ENCOUNTER → 2024-07-09 | Outpatient (CLI) | payer BC | END | disposition home or self-care (01) | LOC: LAB 12:11 | PROVIDERS: ATTEND Family Medicine | DX: D48.5 Neoplasm of uncertain behavior of skin (principal) ==

== ENCOUNTER → 2024-09-02 | Outpatient (CLI) | payer BC ==
[2024-09-02 08:14] LABS: LDL Cholesterol 47 mg/dL (< 100); Triglycerides 259 mg/dL (< 150)
[2024-09-02 08:15] LABS: Cholesterol 108 mg/dL (< 200)
[2024-09-02 08:16] LABS: HDL Cholesterol 35 mg/dL (40-59)
== END | disposition home or self-care (01) ==
LOC: LAB 06:54
PROVIDERS: ATTEND Internal Medicine
DX: E11.9 Type 2 diabetes mellitus without complications (principal); E78.5 Hyperlipidemia, unspecified; B35.1 Tinea unguium
CPT/HCPCS: 36415; 80061; 82607; 83036

== ENCOUNTER → 2024-12-17 | Outpatient (CLI) | payer BC ==
[2024-12-17 07:22] LABS: Alanine Aminotransferase 22 U/L (7-40); Albumin 4.7 g/dL (3.2-4.8); Alkaline Phosphatase 64 U/L (46-116); Anion Gap 6 (5-15); Aspartate Aminotransferase 27 U/L (13-40); BUN/Creatinine Ratio 14.1 (10.0-20.0); Blood Urea Nitrogen 21 mg/dL (9-23); Carbon Dioxide 25 mmol/L (20-31); Chloride 105 mmol/L (98-107); Potassium 4.5 mmol/L (3.5-5.1); Sodium 136 mmol/L (136-145)
[2024-12-17 07:23] LABS: Bilirubin, Total 0.4 mg/dL (0.2-1.0); Total Protein 7.5 g/dL (5.7-8.2)
[2024-12-17 07:24] LABS: Calcium 10.7 mg/dL (8.7-10.4); Glucose 200 mg/dL (74-106)
== END | disposition home or self-care (01) ==
LOC: LAB 06:41
PROVIDERS: ATTEND Internal Medicine
DX: E11.9 Type 2 diabetes mellitus without complications (principal); E78.5 Hyperlipidemia, unspecified; E66.9 Obesity, unspecified
CPT/HCPCS: 36415; 80053; 82306; 83970

== ENCOUNTER → 2025-07-15 | Outpatient (CLI) | payer BC ==
[2025-07-15 07:51] LABS: Microalb/Creat Ratio, Urine 16.0
[2025-07-15 07:52] LABS: Alanine Aminotransferase 30 U/L (7-40); Alkaline Phosphatase 56 U/L (46-116); Anion Gap 9 (5-15); Calcium 9.8 mg/dL (8.7-10.4); Carbon Dioxide 24 mmol/L (20-31); Chloride 104 mmol/L (98-107); Potassium 4.7 mmol/L (3.5-5.1); Sodium 137 mmol/L (136-145)
[2025-07-15 07:53] LABS: Albumin 4.6 g/dL (3.2-4.8); BUN/Creatinine Ratio 18.8 (10.0-20.0); Cholesterol 116 mg/dL (< 200)
[2025-07-15 07:54] LABS: Total Protein 7.2 g/dL (5.7-8.2)
[2025-07-15 07:55] LABS: Bilirubin, Total 0.5 mg/dL (0.2-1.0)
[2025-07-15 07:59] LABS: Blood Urea Nitrogen 30 mg/dL (9-23); Glucose 184 mg/dL (74-106); HDL Cholesterol 28 mg/dL (40-59); Triglycerides 284 mg/dL (< 150)
== END | disposition home or self-care (01) ==
LOC: LAB 06:32
PROVIDERS: ATTEND Internal Medicine
DX: I10 Essential (primary) hypertension (principal); E11.9 Type 2 diabetes mellitus without complications; E78.5 Hyperlipidemia, unspecified
CPT/HCPCS: 36415; 80053; 80061; 82043; 82570; 83036

== ENCOUNTER 2025-07-25 06:40 | Outpatient (CLI) | payer BC ==
[2025-07-25 08:45] LABS: Uric Acid 4.7 mg/dL (3.7-9.2)
== END 2025-07-25 17:00 | disposition home or self-care (01) ==
LOC: LAB 06:40
PROVIDERS: ATTEND Internal Medicine
DX: E11.9 Type 2 diabetes mellitus without complications (principal); M19.90 Unspecified osteoarthritis, unspecified site
CPT/HCPCS: 36415; 84550; 85652; 86141

== ENCOUNTER 2025-09-02 03:01 | Inpatient (IN) | payer BC ==
[~2025-09-02] VITALS: Ht 172.7 cm; Wt 127.0 kg
--- NOTE | 2025-09-02 03:35 | ED.PDOC ---
GI ASSESSMENT HPI Comments 60-year-old male with diabetes mellitus type 2, morbid obesity, hypertension who presented to the ER for the evaluation of watery diarrhea for the past 7 days. Patient reports that he recently traveled to [place], did not drank tap water, but reports dining out on a couple of the patient, he started experiencing diarrhea on reaching [place], reports taking Lomotil which decreased the diarrhea frequency for the next couple of days, but since then he has been experiencing almost 10 episodes of loose watery stools and cramping every day. Patient denies fever/chills/abdominal pain/nausea/vomiting at this time. His who traveled with him did not get sick, and he denies any sick contacts. Denies chest pain/shortness of breaths/urinary symptoms at this time. Patient reports taking terbinafine for the past 2 weeks for onychomycosis Reports losing 80 lb in the past 1 year, he has been on Mounjaro Home medications: Januvia, mounjaro, lisinopril, terbinafine Chief Complaint: Diarrhea Time Seen by MD: 03:05 Primary Care Provider: DR. Smith Reviewed Notes: Nurses Notes Allergies: Coded Allergies: Chocolate (Verified Allergy, Unknown, 03/16/18) Uncoded Allergies: TAPE (Allergy, Mild, 04/22/17) PATIENT STATES MEDICAL TAPE CAUSES RASHING Home Meds Reported Medications Dapagliflozin Propanediol (Farxiga) 10 Mg Tab, 10 MG PO DAILY, TAB 06/11/22 Nifedipine (Nifedipine Er) 60 Mg Tab, 60 MG PO DAILY, TAB 06/11/22 Metoprolol Tartrate (LOPRESSOR TABLET) 50 Mg Tb, 50 MG PO BID, TAB 06/11/22 Insulin Glargine (Lantus) 100 Unit/Ml Inj, 100 UNIT SC, INJ 01/15/22 Gabapentin (Gabapentin) 300 Mg Cap, 300 MG PO TID, CAP 01/15/22 Lisinopril (Lisinopril) 2.5 Mg Tab, 2.5 MG PO DAILY, TAB 01/15/22 Aspirin (Aspir-Low) 81 Mg Tab, 81 MG PO DAILY for 30 Days, MG 03/16/18 Furosemide (Furosemide) 40 Mg Tab, 40 MG PO DAILY for 30 Days 04/22/17 Simvastatin (Simvastatin) 40 Mg Tab, 40 MG PO DAILY, #30 08/16/14 Sitagliptin Phosphate (Januvia) 100 Mg Tab, 100 MG PO DAILY, #30 08/16/14 Pioglitazone Hcl-Metformin Hcl (Actoplus Met) 15 Mg/500 Mg Tab, 1 TAB PO BID, TAB 08/16/14 Glimepiride (Glimepiride) 4 Mg Tab, 1 TAB PO BID 08/17/10 Allopurinol (Allopurinol) 300 Mg Tab, 1 TAB PO DAILY 08/17/10 Mode of Arrival: Ambulatory Past Medical History PAST MEDICAL HISTORY: DM, Gout, High Lipids, HTN Surgical History: Tonsillectomy Family History Family History: No family hx of DM, Unknown Social History Smoker: Cigarettes, Less Than 1 Pack/Day Alcohol: Occasionally Drugs: Denies Drug Use Lives In: Home Constitutional: denies: chills, diaphoresis, fatigue, fever, malaise, sweats, weakness, others EENTM: denies: blurred vision, double vision, ear bleeding, ear discharge, ear drainage, ear pain, ear ringing, eye pain, eye redness, hearing loss, mouth pain, mouth swelling, nasal discharge, nose bleeding, nose congestion, nose pain, photophobia, tearing, throat pain, throat swelling, voice changes, others Respiratory: denies: cough, hemoptysis, orthopnea, SOB at rest, shortness of breath, SOB with excertion, stridor, wheezing, others Cardiovascular: denies: chest pain, dizzy spells, diaphoresis, Dyspnea on exertion, edema, irregular heart beat, left arm pain, lightheadedness, palpita tions, PND, syncope, others Gastrointestinal: reports: diarrhea Genitourinary: denies: burning, dysuria, flank pain, frequency, hematuria, incontinence, penile discharge, penile sore, pain, testicle pain, testicle swelling, urgency, others Neurological: denies: dizziness, fainting, headache, left sided numbness, left sided weakness, numbness, paresthesia, pre-existing deficit, right sided numbness, right sided weakness, seizure, speech problems, tingling, tremors, weakness, others Musculoskeletal: denies: back pain, gout, joint pain, joint swelling, muscle pain, muscle stiffness, neck pain, others Integumetry: denies: bruises, change in color, change in hair/nails, dryness, laceration, lesions, lumps, rash, wounds, others Allergic/Immunocompromised: denies: Difficulty Healing, Frequent Infections, Hives, Itching, others Hematologic/Lymphatic: denies: anemia, blood clots, easy bleeding, easy bruising, swollen glands, others Endocrine: denies: excessive hunger, excessive sweating, excessive thirst, excessive urination, flushing, intolerance to cold, intolerance to heat, unexplained weight gain, unexplained weight loss, others Psychiatric: denies: anxiety, bipolar disorder, depression, hopeless, panic disorder, schizophrenia, sleepless, suicidal, others Physical Exam General Appearance: No Apparent Distress, Normal HEENT: Normal ENT Inspection, Pharynx Normal, TMs Normal Neck: Full Range of Motion, Non-Tender, Normal, Normal Inspection Respiratory: Chest Non-Tender, Lungs Clear, No Accessory Muscle Use, No Respiratory Distress, Normal Breath Sounds Cardiovascular: No Edema, No JVD, No Murmur, No Gallop, Normal Peripheral Pulses, Regular Rate/Rhythm Breast Exam: Deferred Gastrointestinal: No Organomegaly, Non Tender, No Pulsatile Mass, Normal Bowel Sounds, Soft Genitalia: Deferred Pelvic: Deferred Rectal: Deferred Extremities: No calf tenderness, Normal capillary refill, Normal inspection, Normal range of motion, Non-tender, No pedal edema Musculoskeletal : Apperance: Normal Neurologic: Alert, diamond die maker II-XII nml as Tested, No Motor Deficits, Normal Affect, Normal Mood, No Sensory Deficits Cerebellar Function: Normal Reflexes: Normal Skin: Dry, Normal Color, Warm Lymphatic: No Adenopathy Was a procedure done? Was a procedure done?: No GI differential Dx Differential Diagnosis: Gastroenteritis, Dehydration Other Differential Diagnosis Traveler's diarrhea/inflammatory diarrhea/pancreatitis X-Ray, Labs, Meds, VS Vital Signs Date Time Temp Pulse Resp B/P (MAP) Pulse Ox O2 Delivery O2 Flow Rate FiO2 09/02/25 05:13 17 96 Room Air* 0 21 09/02/25 05:11 72 09/02/25 05:09 98.1 73 18 110/63 (79) 95 98.1 09/02/25 03:03 97.7 82 14 128/65 98 97.7 Lab Test 09/02/25 05:24 09/02/25 04:27 09/02/25 03:45 Range/Units POC Glucose 184 H 70-106 mg/dl Stool Occult Blood Sample #3 Pending White Blood Count 9.5 4.4-10.8 10^3/uL Red Blood Count 4.65 4.5-5.90 10^6/uL Hemoglobin 15.4 13.5-17.5 g/dL Hematocrit 44.7 41.0-53.0 % Mean Corpuscular Volume 96.1 80.0-100.0 fL Mean Corpuscular Hemoglobin 33.1 H 28.0-32.0 pg Mean Corpuscular Hemoglobin Concent 34.4 32.0-36.0 g/dL Red Cell Distribution Width 14.0 11.8-14.3 % Platelet Count 246 140-450 10^3/uL Mean Platelet Volume 8.7 6.9-10.8 fL Neutrophils (%) (Auto) 64.1 37.0-80.0 % Lymphocytes (%) (Auto) 21.4 10.0-50.0 % Monocytes (%) (Auto) 10.6 0.0-12.0 % Eosinophils (%) (Auto) 3.2 0.0-7.0 % Basophils (%) (Auto) 0.7 0.0-2.0 % Neutrophils # (Auto) 6.1 1.6-8.6 10 ^3/uL Lymphocytes # (Auto) 2.0 0.4-5.4 10 ^3/uL Monocytes # (Auto) 1.0 0-1.3 10 ^3/uL Eosinophils # (Auto) 0.3 0-0.8 10 ^3/uL Basophils # (Auto) 0.1 0-0.2 10 ^3/uL Nucleated Red Blood Cells 0.0 % Sodium Level 139 136-145 mmol/L Potassium Level 5.5 H 3.5-5.1 mmol/L Chloride Level 103 98-107 mmol/L Carbon Dioxide Level 25 20-31 mmol/L Anion Gap 11 5-15 Blood Urea Nitrogen 30 H 9-23 mg/dL Creatinine 1.94 H 0.700-1.30 mg/dL Glomerular Filtration Rate Calc 39 >90 mL/min BUN/Creatinine Ratio 15.5 10.0-20.0 Serum Glucose 187 H 74-106 mg/dL Calcium Level 10.6 H 8.7-10.4 mg/dL Total Bilirubin 0.5 0.2-1.0 mg/dL Aspartate Amino Transferase (AST) 31 13-40 U/L Alanine Aminotransferase (ALT) 32 7-40 U/L Alkaline Phosphatase 57 46-116 U/L C-Reactive Protein High Sensitivity 0.44 <1.0 mg/dL Total Protein 8.0 5.7-8.2 g/dL Albumin 4.7 3.2-4.8 g/dL Lipase 226 H 12-53 U/L Current Medications Medications (Trade) Dose Ordered Sig/Angi Route Start Time Stop Time Status Last Admin Insulin Human Regular (InsuLIN R) 10 units ONCE ONCE IV 09/02/25 05:00 09/02/25 05:02 DC 09/02/25 05:30 Dextrose 50 ml ONCE ONCE IV 09/02/25 05:00 09/02/25 05:02 DC 09/02/25 05:28 Albuterol (Ventolin Medneb) 20 mg ONCE ONCE NEB 09/02/25 05:00 09/02/25 05:02 DC 09/02/25 05:10 Zirconium Oxide (Lokelma) 10 gm ONCE ONCE PO 09/02/25 05:00 09/02/25 05:02 DC 09/02/25 05:31 X-Ray, Labs, Meds, VS Comment CBC unremarkable, CMP demonstrating MAYA, creatinine 1.9, GFR 39, lipase elevated, potassium 5.5, Mag pending Images Reviewed?: Images reviewed and evaluated by me Time of 1ST Reevaluation: 04:00 Reevaluation 1ST: Improved Patient Education/Counseling: Diagnosis, Treatment, Prognosis, Need For Follow Up Family Education/Counseling: Diagnosis, Treatment, Prognosis, Need For Follow Up SEPSIS Sepsis Screen Date sepsis recognized/suspect: Sep 02, 2025 Time Sepsis recognized/suspect: 030 Recent Procedure: No On Antibiotic Therapy: No Respiratory Rate >20: No Heart Rate >90: No Temp<36 C (96.8 F) or >38.3 C: No SBP <90 or MAP <65 mmHG: No New Acute Mental Status Change: No Is the patient on CPAP, BIPAP,: No Physician Orders Stool Bacterial Culture (09/02/25 03:24) Stool Occult Blood (09/02/25 03:24) Ct Ab Pel Wo Con-No Oral Or Iv (09/02/25 03:24) Electrocardigram (09/02/25 04:55) Trash Hauler (09/02/25 ) Clostridium Difficile Toxin (09/02/25 05:04) Vital Signs Date Time Temp Pulse Resp B/P (MAP) Pulse Ox O2 Delivery O2 Flow Rate FiO2 09/02/25 05:13 17 96 Room Air* 0 21 09/02/25 05:11 72 09/02/25 05:09 98.1 73 18 110/63 (79) 95 98.1 09/02/25 03:03 97.7 82 14 128/65 98 97.7 Laboratory Tests Test 09/02/25 03:45 White Blood Count 9.5 10^3/uL (4.4-10.8) Medications Medications Dose Ordered Sig/Angi Route Start Time Stop Time Status Last Admin Dose Admin Albuterol 20 mg ONCE ONCE NEB 09/02/25 05:00 09/02/25 05:02 DC 09/02/25 05:10 Dextrose 50 ml ONCE ONCE IV 09/02/25 05:00 09/02/25 05:02 DC 09/02/25 05:28 Insulin Human Regular 10 units ONCE ONCE IV 09/02/25 05:00 09/02/25 05:02 DC 09/02/25 05:30 Zirconium Oxide 10 gm ONCE ONCE PO 09/02/25 05:00 09/02/25 05:02 DC 09/02/25 05:31 Departure 1 Departure Time of Disposition: 05:51 Impression: Primary Impression: Diarrhea Additional Impressions: MAYA (acute kidney injury) Hyperkalemia Disposition: 30 STILL A PATIENT Admit to: Tele Condition: Fair Additional Instructions: Patient will be admitted to this facility for workup of MAYA, diarrhea, hyperkalemia. Nephrology consultation placed. Hyperkalemia treatment given. EKG sinus rhythm. CT abdomen/pelvis , stool studies, C diff studies pending. Critical Care Note Critical Care Time?: No Stability Stability form required: KELLEN Roberson RESIDENT Sep 02, 2025 03:35
[2025-09-02 04:07] LABS: Hematocrit 44.7 % (41.0-53.0); Hemoglobin 15.4 g/dL (13.5-17.5); Mean Corpuscular Hemoglobin 33.1 pg (28.0-32.0); Mean Corpuscular Volume 96.1 fL (80.0-100.0); Nucleated Red Blood Cells % 0.0 %
[2025-09-02 04:36] LABS: Alanine Aminotransferase 32 U/L (7-40); Albumin 4.7 g/dL (3.2-4.8); Alkaline Phosphatase 57 U/L (46-116); Anion Gap 11 (5-15); BUN/Creatinine Ratio 15.5 (10.0-20.0); Bilirubin, Total 0.5 mg/dL (0.2-1.0); Carbon Dioxide 25 mmol/L (20-31); Chloride 103 mmol/L (98-107); Sodium 139 mmol/L (136-145); Total Protein 8.0 g/dL (5.7-8.2)
[2025-09-02 04:48] LABS: Blood Urea Nitrogen 30 mg/dL (9-23); Calcium 10.6 mg/dL (8.7-10.4); Glucose 187 mg/dL (74-106); Lipase 226 U/L (12-53); Potassium 5.5 mmol/L (3.5-5.1)
[2025-09-02] MEDS: ALBUTEROL SULF 2.5 MG/0.5ML(0.5%) NEB SOLN NEB ONE (05:10)
[2025-09-02] MEDS: DEXTROSE (50%) 50ML SYRG IV ONE (05:28)
[2025-09-02] MEDS: InsuLIN REG 1unit/0.01ml Soln (100units/ml) IV ONE (05:30)
[2025-09-02] MEDS: SODIUM ZIRCONIUM CYCL 10 GM PAK PO ONE (05:31)
[2025-09-02] MEDS: SODIUM CHLORIDE 0.9% 1,000 ML IV ONE (05:51)
--- NOTE | 2025-09-02 06:16 | DVH ---
Exam: CT CT AB PEL WO CON-NO ORAL OR IV History: Diarhhea, 1 week Comparison Study: None. Technique: Multidetector spiral CT of the abdomen and pelvis was performed from lung bases to pubic s ymphysis. Imaging was performed without intravenous contrast. Coronal and sagittal multiplanar reform ats were obtained from the axial data set by the technologist. Radiation Dose : 1. Abdomen/Pelvis: CTDIvol 23.7 mGy, DLP 1733.9 mGy*cm. Findings: Evaluation of vasculature and solid organs is limited due to lack of intravenous contrast use. Lung Bases: Right middle lobe opacities noted. Visualized portions of the heart and pericardium are u nremarkable. Liver: The liver is normal in size. No focal lesions. Gallbladder and Biliary Tree: The gallbladder is unremarkable No intrahepatic or extrahepatic biliar y ductal dilatation. Spleen: Unremarkable Pancreas: The pancreas is grossly unremarkable. Adrenal Glands: Unremarkable Kidneys: Kidneys are unremarkable without calculi or hydronephrosis. GI tract: The stomach is grossly normal in appearance. There is fluid in nondistended small bowel loo ps and liquid stool in some of the colonic loops. No evidence of small bowel wall thickening or abnor mal dilatation to suggest bowel obstruction. There is colonic diverticulosis without acute diverticul itis. No acute appendicitis. Peritoneum/mesentery/retroperitoneum. No evidence of free intraperitoneal air. No ascites. No evidenc e of suspicious lymphadenopathy. Abdominal Wall: Unremarkable. Vasculature: The visualized abdominal aorta is normal in size and caliber. Evaluation of abdominal a nd pelvic vessels is limited due to lack of intravenous contrast. Urinary Bladder: Trabeculated urinary bladder with wall thickening Pelvic Organs: Unremarkable Musculoskeletal: No aggressive focal bony lesions, acute fractures or dislocation. Multilevel lumbar spondylosis. IMPRESSION: 1. Fluid in nondistended small bowel loops and liquid stool in the colon. Findings are suggestive of enterocolitis. 2. Trabeculated urinary bladder with wall thickening. Correlate for cystitis. 3. Opacities noted in the right middle lobe.
[2025-09-02] MEDS ORDERED: DEXTROSE (50%) 50ML SYRG IV PRN (07:15)
[2025-09-02] MEDS ORDERED: ACETAMINOPHEN 325 MG TAB PO PRN (07:15)
[2025-09-02] MEDS ORDERED: ONDANSETRON HCL 4 MG/2 ML VIAL IV PRN (07:15)
[2025-09-02] MEDS ORDERED: HYDROcodone-ACET 5/325MG TAB PO PRN (07:15)
--- NOTE | 2025-09-02 07:21 | DVHHP2 ---
History of Present Illness Reason for Visit: Diarrhea History of Present Illness Talon Manning is a 60-year-old male past medical history of CKD, chronic diastolic heart failure, sleep apnea, diabetes type 2, morbid obesity, hypertension, hyperlipidemia, gout, genital warts, right ankle surgery, right knee surgery, hernia repair, appendectomy, tonsillectomy, and intestinal resection in 1968 who presents to the ED with diarrhea that started on August 10, 2025. Patient reports that last week it had been getting worse and has been noted to have green-like watery stools. Patient reports that because of the constant diarrhea, his rectum is raw. He states when he wipes he denies seeing any blood or seeing blood in his stools. Patient's Bryanna at the bedside. Patient reports that he recently went to [place] to visit his 's aunt. He also endorses eating spicy foods. He reports that he is compliant with his medications. He also reports that he was recently diagnosed with CKD and is supposed to have an appointment coming up on 09/27/[address] Wright. Patient also reports that he does not use oxygen at home however upon examination patient is currently on 2 L via nasal cannula. Patient reports that the oxygen helps him while he is waiting to use a CPAP machine. Patient also endorsed taking Lomotil which decreased the frequency for several days but since then he has been having about 10 episodes of loose watery stools and cramping sensation daily. Patient also reports that he lost 85 lbs in the last 1.5 years that was planned. Patient denies any recent trauma or injury, recent sick contacts, recent ingestion of spoiled food, chest pain, shortness breath, fever, chills, redness going cancer, dizziness, abdominal pain, nausea, vomiting, or urinary symptoms. Cardiovascular: HTN, hyperipidemia Rheumatologic: Gout Renal/: Chronic renal insuff Endocrine: Diabetes Past Medical History Heart failure Sleep apnea Morbid obesity Genital warts Past Surgical History: Appendectomy, Hernia Repair, Other (Right ankle surgery, right knee surgery, and intestinal resection in 1968), Tonsillectomy Family History: Other (Mom with pacemaker and with COPD who is now disease.) Smoke: # pack years (Cigars) ALCOHOL: occassional Drugs: None Lives: with Family Domestic Violence: Neg Review of Systems Gastrointestinal: Diarrhea Allergies: Coded Allergies: Chocolate (Verified Allergy, Unknown, 03/16/18) Uncoded Allergies: TAPE (Allergy, Mild, 04/22/17) PATIENT STATES MEDICAL TAPE CAUSES RASHING Exam Vital Signs Vital Signs Date Time Temp Pulse Resp B/P (MAP) Pulse Ox O2 Delivery O2 Flow Rate FiO2 09/02/25 06:00 101 12 120/64 (82) 99 09/02/25 05:13 Room Air* 0 21 09/02/25 05:09 98.1 98.1 General Appearance: Alert, Oriented X3, Cooperative, No acute distress HEENT: Atraumatic, PERRLA, EOMI, Mucous membr. moist/pink Respiratory: Normal air movement Cardiovascular: Normal S1, Normal S2 Abdominal: Normal bowel sounds, Soft Extremities: No edema, Normal pulses Neuro: Normal speech, Strength at 5/5 X4 ext, Normal tone, Sensation intact Psych/Mental Status: Mental status NL, Mood NL Labs/Xrays Labs Test 09/02/25 05:24 09/02/25 04:27 09/02/25 03:45 Range/Units POC Glucose 184 H 70-106 mg/dl Stool Occult Blood Positive Negative Stool Occult Blood Sample #3 Negative White Blood Count 9.5 4.4-10.8 10^3/uL Red Blood Count 4.65 4.5-5.90 10^6/uL Hemoglobin 15.4 13.5-17.5 g/dL Hematocrit 44.7 41.0-53.0 % Mean Corpuscular Volume 96.1 80.0-100.0 fL Mean Corpuscular Hemoglobin 33.1 H 28.0-32.0 pg Mean Corpuscular Hemoglobin Concent 34.4 32.0-36.0 g/dL Red Cell Distribution Width 14.0 11.8-14.3 % Platelet Count 246 140-450 10^3/uL Mean Platelet Volume 8.7 6.9-10.8 fL Neutrophils (%) (Auto) 64.1 37.0-80.0 % Lymphocytes (%) (Auto) 21.4 10.0-50.0 % Monocytes (%) (Auto) 10.6 0.0-12.0 % Eosinophils (%) (Auto) 3.2 0.0-7.0 % Basophils (%) (Auto) 0.7 0.0-2.0 % Neutrophils # (Auto) 6.1 1.6-8.6 10 ^3/uL Lymphocytes # (Auto) 2.0 0.4-5.4 10 ^3/uL Monocytes # (Auto) 1.0 0-1.3 10 ^3/uL Eosinophils # (Auto) 0.3 0-0.8 10 ^3/uL Basophils # (Auto) 0.1 0-0.2 10 ^3/uL Nucleated Red Blood Cells 0.0 % Sodium Level 139 136-145 mmol/L Potassium Level 5.5 H 3.5-5.1 mmol/L Chloride Level 103 98-107 mmol/L Carbon Dioxide Level 25 20-31 mmol/L Anion Gap 11 5-15 Blood Urea Nitrogen 30 H 9-23 mg/dL Creatinine 1.94 H 0.700-1.30 mg/dL Glomerular Filtration Rate Calc 39 >90 mL/min BUN/Creatinine Ratio 15.5 10.0-20.0 Serum Glucose 187 H 74-106 mg/dL Calcium Level 10.6 H 8.7-10.4 mg/dL Total Bilirubin 0.5 0.2-1.0 mg/dL Aspartate Amino Transferase (AST) 31 13-40 U/L Alanine Aminotransferase (ALT) 32 7-40 U/L Alkaline Phosphatase 57 46-116 U/L C-Reactive Protein High Sensitivity 0.44 <1.0 mg/dL Total Protein 8.0 5.7-8.2 g/dL Albumin 4.7 3.2-4.8 g/dL Lipase 226 H 12-53 U/L Exam: CT CT AB PEL WO CON-NO ORAL OR IV History: Diarhhea, 1 week Comparison Study: None. Technique: Multidetector spiral CT of the abdomen and pelvis was performed from lung bases to pubic symphysis. Imaging was performed without intravenous contrast. Coronal and sagittal multiplanar reformats were obtained from the [employer] data set by the technologist. Radiation Dose : 1. Abdomen/Pelvis: CTDIvol 23.7 mGy, DLP 1733.9 mGy*cm. Findings: Evaluation of vasculature and solid organs is limited due to lack of intravenous contrast use. Lung Bases: Right middle lobe opacities noted. Visualized portions of the heart and pericardium are unremarkable. Liver: The liver is normal in size. No focal lesions. Gallbladder and Biliary Tree: The gallbladder is unremarkable No intrahepatic or extrahepatic biliary ductal dilatation. Spleen: Unremarkable Pancreas: The pancreas is grossly unremarkable. Adrenal Glands: Unremarkable Kidneys: Kidneys are unremarkable without calculi or hydronephrosis. GI tract: The stomach is grossly normal in appearance. There is fluid in nondistended small bowel loops and liquid stool in some of the colonic loops. No evidence of small bowel wall thickening or abnormal dilatation to suggest bowel obstruction. There is colonic diverticulosis without acute diverticulitis. No acute appendicitis. Peritoneum/mesentery/retroperitoneum. No evidence of free intraperitoneal air. No ascites. No evidence of suspicious lymphadenopathy. Abdominal Wall: Unremarkable. Vasculature: The visualized abdominal aorta is normal in size and caliber. Evaluation of abdominal and pelvic vessels is limited due to lack of intravenous contrast. Urinary Bladder: Trabeculated urinary bladder with wall thickening Pelvic Organs: Unremarkable Musculoskeletal: No aggressive focal bony lesions, acute fractures or dislocation. Multilevel lumbar spondylosis. IMPRESSION: 1. Fluid in nondistended small bowel loops and liquid stool in the colon. Findings are suggestive of enterocolitis. 2. Trabeculated urinary bladder with wall thickening. Correlate for cystitis. 3. Opacities noted in the right middle lobe. SEPSIS Sepsis Screen Date sepsis recognized/suspect: Sep 02, 2025 Time Sepsis recognized/suspect: 0306 Recent Procedure: No On Antibiotic Therapy: No Respiratory Rate >20: No Heart Rate >90: No Temp<36 C (96.8 F) or >38.3 C: No SBP <90 or MAP <65 mmHG: No New Acute Mental Status Change: No Is the patient on CPAP, BIPAP,: No Physician Orders Stool Bacterial Culture (09/02/25 03:24) Ct Ab Pel Wo Con-No Oral Or Iv (09/02/25 03:24) Electrocardigram (09/02/25 04:55) Horticultural Nursery Assistant (09/02/25 ) Clostridium Difficile Toxin (09/02/25 05:04) *[facility] (09/02/25 06:07) Potassium (09/02/25 08:00) Magnesium (09/02/25 08:00) Vital Signs Date Time Temp Pulse Resp B/P (MAP) Pulse Ox O2 Delivery O2 Flow Rate FiO2 09/02/25 06:00 101 12 120/64 (82) 99 09/02/25 05:13 17 96 Room Air* 0 21 09/02/25 05:11 72 09/02/25 05:09 98.1 73 18 110/63 (79) 95 98.1 09/02/25 03:03 97.7 82 14 128/65 98 97.7 Laboratory Tests Test 09/02/25 03:45 White Blood Count 9.5 10^3/uL (4.4-10.8) Medications Medications Dose Ordered Sig/Angi Route Start Time Stop Time Status Last Admin Dose Admin Albuterol 20 mg ONCE ONCE NEB 09/02/25 05:00 09/02/25 05:02 DC 09/02/25 05:10 20 MG Dextrose 50 ml ONCE ONCE IV 09/02/25 05:00 09/02/25 05:02 DC 09/02/25 05:28 50 ML Insulin Human Regular 10 units ONCE ONCE IV 09/02/25 05:00 09/02/25 05:02 DC 09/02/25 05:30 10 UNITS Sodium Chloride 1,000 ml @ 1,000 mls/hr Q1H ONCE IV 09/02/25 03:30 09/02/25 04:29 DC 09/02/25 05:51 1,000 MLS/HR Zirconium Oxide 10 gm ONCE ONCE PO 09/02/25 05:00 09/02/25 05:02 DC 09/02/25 05:31 10 GM Assessment/Plan Assessment/Plan Assessment Intractable diarrhea likely due to entercocolitis Rule out cdiff Positive stool OB rule out GIB Hyperkalemia Hyperlipasemia ? cystitis ? PNA MAYA likely prerenal Acute hypoxic respiratory failure on supplemental oxygen Hypomagnesemia History of CKD History of chronic diastolic heart failure History of sleep apnea on CPAP History of diabetes type 2 History of morbid obesity History of hypertension History of gout History of general worse History of right ankle surgery History of right knee surgery History of hernia repair History of appendectomy History of intestinal resection in 1968 History of tonsillectomy History of hyperlipidemia Plan admit to tele Supplemental oxygen Replete lytes IV antibiotics-ciprofloxacin esr crp hyperkalemia protocol Hemoglobin A1c ISS and Accu-Cheks Chest x-ray type and screen transfuse prbcs for hgb < 7.0 Strict I&Os Daily weights CPAP machine for night Mg Potassium Repeat potassium level EKG CT abdomen pelvis noted Lipase level Stool OB Stool bacterial Lactic UA UDS CPAP for night Diet Home medications reconciled DVT prophylaxis-SCDs PUD prophylaxis - PPIs Discussed plan of care with patient, patient's , and nurse nephro cx by ED Dietary consult GI cx Counseled patient on cessation of cigar and alcohol use Counseled patient on lifestyle modifications, diet, and exercise [id number] Behavior change smoking greater than 10 minutes about use of other options also gave option of nicotine patch [id number] Preventive counseling healthy eating habits, physical activity, and regular checkups Plan discussed with: Patient, Spouse Date of Service: Sep 02, 2025 Billing Provider: ROSE PATIÑO Common Visit Codes: 55424-[id number] INP/OBS CARE (HIGH) Secondary Visit Codes: [id number] COUNSELING IND, [id number] CHNG SMOKING >10MIN ROSE PATIÑO Sep 02, 2025 07:21
--- NOTE | 2025-09-02 07:53 | DVH ---
CHEST RADIOGRAPH Indication: r/o pna Technique: Single frontal view of the chest was obtained COMPARISON: CHEST TWO VIEWS ROUTINE on DOS: 01/15/22 FINDINGS: Lines and Tubes: None Lungs: Clear Pleura: No effusion. No pneumothorax. Cardiomediastinal contours: Unremarkable Bones: Unremarkable IMPRESSION: No acute disease.
[2025-09-02 08:11] LABS: Potassium 3.8 mmol/L (3.5-5.1)
[2025-09-02 08:22] LABS: Magnesium 1.4 mg/dL (1.6-2.6)
[2025-09-02 08:42] LABS: Iron 83.0 ug/dL (65-175)
[2025-09-02 08:44] VITALS: BP 120/64; PULSE 90; RESP 17; TEMP 98.1; O2SAT 97
[2025-09-02 08:45] LABS: Total Iron Binding Capacity 316.0 ug/dL (250-425)
[2025-09-02] MEDS ORDERED: TERB250T92 PO (08:45)
[2025-09-02] MEDS ORDERED: FENO160T PO (08:45)
[2025-09-02] MEDS: CIPROFLOXACIN 400MG/200ML 200 ML IV SCH (09:08)
[2025-09-02 09:13] VITALS: O2SAT 99
[2025-09-02] MEDS: TERBINAFINE HCL 250 MG PO SCH (10:00)
[2025-09-02] MEDS: METOPROLOL TARTRATE 50 MG TAB PO SCH (10:00)
[2025-09-02] MEDS: ALLOPURINOL 100 MG TAB PO SCH (10:12)
[2025-09-02] MEDS: FUROSEMIDE 40 MG/4 ML VIAL IV SCH (10:14)
[2025-09-02] MEDS: LISINOPRIL 5 MG TAB PO SCH (10:16)
[2025-09-02] MEDS: GABAPENTIN 300 MG CAP PO SCH (10:37)
[2025-09-02 11:50] VITALS: PULSE 82; RESP 14; O2SAT 98
[2025-09-02] MEDS: ACCU-CHEK COMFORT CURVE STRIP VI SCH (11:53)
[2025-09-02] MEDS: MAGNESIUM SULFATE 1GM/100ML 100 ML IV ONE (12:04)
[2025-09-02] MEDS: InsuLIN REG 1unit/0.01ml Soln (100units/ml) SC SCH (12:04)
[2025-09-02 12:21] LABS: INR 1.05 (0.9-1.15); Prothrombin Time 11.1 sec (9.3-11.8)
--- NOTE | 2025-09-02 13:08 | DVHINCON2 ---
GI Consult Consult Note GI consult note Date of Consultation: 09/02/2025 Chief Complaint: Rule out GI bleed, intractable diarrhea for three weeks Referring Physician: Gio SYLVESTER H&P: 60-year-old male seen in ER bed seven with complains of diarrhea which started August 10, mostly was loose stool which has worsened this past week and now having watery stool, about one episode every hour. Denies melena or red blood in stool. No abdominal pain. Denies fevers or chills no nausea or vomiting. Patient admits to taking Lomotil and this seems to help with his symptoms. 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 Family History: Noncontributory Review of Systems: Constitutional: no fever, chill, weight loss HEENT: no eye pain, no hearing loss, no oral lesion, no scleral icterus Heart: no chest pain, no chest pressure Lung: no cough, no dyspnea with exertion Physical exam: General: NAD, AAOX3 Chest: lung damico clear to auscultation Heart: RRR, no murmur Abdomen: non-distended, no tenderness to palpation, +BS Labs: Labs Test 09/02/25 11:49 09/02/25 09:22 09/02/25 07:35 09/02/25 04:27 Range/Units POC Glucose 195 H 70-106 mg/dl Lactic Acid Level 1.5 0.4-2.0 mmol/L Prothrombin Time 11.1 9.3-11.8 sec Prothrombin Time INR 1.05 0.9-1.15 Potassium Level 3.8 3.5-5.1 mmol/L Magnesium Level 1.4 L 1.6-2.6 mg/dL Stool Occult Blood Positive Negative Stool Occult Blood Sample #3 Negative Test 09/02/25 03:45 Range/Units White Blood Count 9.5 4.4-10.8 10^3/uL Red Blood Count 4.65 4.5-5.90 10^6/uL Hemoglobin 15.4 13.5-17.5 g/dL Hematocrit 44.7 41.0-53.0 % Mean Corpuscular Volume 96.1 80.0-100.0 fL Mean Corpuscular Hemoglobin 33.1 H 28.0-32.0 pg Mean Corpuscular Hemoglobin Concent 34.4 32.0-36.0 g/dL Red Cell Distribution Width 14.0 11.8-14.3 % Platelet Count 246 140-450 10^3/uL Mean Platelet Volume 8.7 6.9-10.8 fL Neutrophils (%) (Auto) 64.1 37.0-80.0 % Lymphocytes (%) (Auto) 21.4 10.0-50.0 % Monocytes (%) (Auto) 10.6 0.0-12.0 % Eosinophils (%) (Auto) 3.2 0.0-7.0 % Basophils (%) (Auto) 0.7 0.0-2.0 % Neutrophils # (Auto) 6.1 1.6-8.6 10 ^3/uL Lymphocytes # (Auto) 2.0 0.4-5.4 10 ^3/uL Monocytes # (Auto) 1.0 0-1.3 10 ^3/uL Eosinophils # (Auto) 0.3 0-0.8 10 ^3/uL Basophils # (Auto) 0.1 0-0.2 10 ^3/uL Nucleated Red Blood Cells 0.0 % Erythrocyte Sedimentation Rate 22 H 0-20 mm/hr Reticulocyte Count (auto) 1.03 0.5-1.5 % Sodium Level 139 136-145 mmol/L Chloride Level 103 98-107 mmol/L Carbon Dioxide Level 25 20-31 mmol/L Anion Gap 11 5-15 Blood Urea Nitrogen 30 H 9-23 mg/dL Creatinine 1.94 H 0.700-1.30 mg/dL Glomerular Filtration Rate Calc 39 >90 mL/min BUN/Creatinine Ratio 15.5 10.0-20.0 Serum Glucose 187 H 74-106 mg/dL Hemoglobin A1c 7.3 H <5.7 % A1C Calcium Level 10.6 H 8.7-10.4 mg/dL Iron Level 83 65-175 ug/dL Total Iron Binding Capacity 316 250-425 ug/dL Percent Iron Saturation 26.3 20-55 % Total Bilirubin 0.5 0.2-1.0 mg/dL Aspartate Amino Transferase (AST) 31 13-40 U/L Alanine Aminotransferase (ALT) 32 7-40 U/L Alkaline Phosphatase 57 46-116 U/L C-Reactive Protein High Sensitivity 0.41 <1.0 mg/dL Total Protein 8.0 5.7-8.2 g/dL Albumin 4.7 3.2-4.8 g/dL Lipase 226 H 12-53 U/L Vitamin D 25-Hydroxy 53.4 30.0-100 ng/mL Folic Acid 18.94 >5.38 ng/mL Imaging: CT abdomen pelvis IMPRESSION: 1. Fluid in nondistended small bowel loops and liquid stool in the colon. Findings are suggestive of enterocolitis. 2. Trabeculated urinary bladder with wall thickening. Correlate for cystitis. 3. Opacities noted in the right middle lobe. Assessment: Intractable diarrhea Possible enterocolitis Elevated lipase Possible cystitis Plan: Discussed with Dr. Cool Stool for WBC, bacterial culture, C diff IV Flagyl Diet as tolerated Monitor lipase in a.m. We will continue follow patient Thank you for this consult Date of Service: Sep 02, 2025 Billing Provider: EMILY FERNANDEZ Common Visit Codes: CONSULT ONLY Consultation Codes: [id number] CONSULT <60MIN EMILY FERNANDEZ Sep 02, 2025 13:08
--- NOTE | 2025-09-02 14:00 | DVHINCON2 ---
Date of service: Sep 02, 2025 Reason for Consultation Acute kidney injury History of Present Illness 60-year-old morbidly obese male with past medical history of hypertension diabetes reports a history of abdominal disease and has had abdominal surgery in the past reports he had several weeks recently of profuse diarrhea that has been been progressively worsening nephrology is consulted due to elevated creatinine level. His previous hospitalizations as far back as 2022 showed a GFR in proximally 50-60% indicating [id number] kidney disease at presentation patient was noted to have elevated potassium level he has received IV fluids and antibiotics Allergies: Coded Allergies: Chocolate (Verified Allergy, Unknown, 03/16/18) Uncoded Allergies: TAPE (Allergy, Mild, 04/22/17) PATIENT STATES MEDICAL TAPE CAUSES RASHING Home Meds Reported Medications Fenofibrate (Fenofibrate) 160 Mg Tab, 1 TAB PO DAILY 09/02/25 Terbinafine Hcl (Terbinafine Hcl) 250 Mg Tab, 1 TAB PO DAILY 09/02/25 Dapagliflozin Propanediol (Farxiga) 10 Mg Tab, 10 MG PO DAILY, TAB 06/11/22 Nifedipine (Nifedipine Er) 60 Mg Tab, 60 MG PO DAILY, TAB 06/11/22 Metoprolol Tartrate (LOPRESSOR TABLET) 50 Mg Tb, 50 MG PO BID, TAB 06/11/22 Insulin Glargine (Lantus) 100 Unit/Ml Inj, 100 UNIT SC, INJ 01/15/22 Gabapentin (Gabapentin) 300 Mg Cap, 300 MG PO TID, CAP 01/15/22 Lisinopril (Lisinopril) 2.5 Mg Tab, 2.5 MG PO DAILY, TAB 01/15/22 Aspirin (Aspir-Low) 81 Mg Tab, 81 MG PO DAILY for 30 Days, MG 03/16/18 Furosemide (Furosemide) 40 Mg Tab, 40 MG PO DAILY for 30 Days 04/22/17 Simvastatin (Simvastatin) 40 Mg Tab, 40 MG PO DAILY, #30 08/16/14 Sitagliptin Phosphate (Januvia) 100 Mg Tab, 100 MG PO DAILY, #30 08/16/14 Pioglitazone Hcl-Metformin Hcl (Actoplus Met) 15 Mg/500 Mg Tab, 1 TAB PO BID, TAB 08/16/14 Glimepiride (Glimepiride) 4 Mg Tab, 1 TAB PO BID 9/17/10 Allopurinol (Allopurinol) 300 Mg Tab, 1 TAB PO DAILY 08/17/10 Current Medications Current Medications Medications (Trade) Dose Ordered Sig/Angi Route PRN Reason Start Time Stop Time Status Last Admin Diagnostic Test (Pha) (Accu-Chek Comfort Curve T) 1 strip ACHS 09/02/25 11:30 09/02/25 11:53 Insulin Human Regular (InsuLIN R) ACHS SC 09/02/25 11:30 09/02/25 12:04 Dextrose 50 ml UD PRN IV Blood Sugar LESS THAN 60 09/02/25 07:15 Acetaminophen/ Hydrocodone Bitart (Craig 5/325MG Tab) 1 tab Q4HP PRN PO MODERATE PAIN (4-6 PAIN SCALE) 09/02/25 07:15 Ondansetron HCl (Zofran) 4 mg Q4HP PRN IV NAUSEA / VOMITING 09/02/25 07:15 Acetaminophen (Tylenol Tablet) 650 mg Q6HP PRN PO PAIN SCALE 1-3 OR TEMP>100.4 09/02/25 07:15 Ciprofloxacin 200 ml @ 200 mls/hr Q8HR IV 09/02/25 08:45 09/02/25 09:08 Furosemide (Lasix Injection) 40 mg DAILY IV 09/02/25 10:14 Gabapentin (Neurontin Capsule) 300 mg BID PO 09/02/25 10:15 09/02/25 10:37 Metoprolol Tartrate (Lopressor Tablet) 50 mg BID PO 09/02/25 10:00 Allopurinol (Zyloprim Tablet) 300 mg DAILY PO 09/02/25 10:00 09/02/25 10:12 Lisinopril (Zestril Tablet) 2.5 mg DAILY PO 09/02/25 10:00 09/02/25 13:12 DC 09/02/25 10:16 Nifedipine (Procardia Xl (Time-Release)) 60 mg DAILY PO 09/02/25 10:00 09/02/25 10:12 Atorvastatin Calcium (Lipitor) 40 mg HS PO 09/02/25 22:00 Patient Own Medication 1 tab DAILY PO 09/02/25 10:00 Patient Own Medication 1 tab DAILY PO 09/02/25 10:00 Metronidazole 100 ml @ 100 mls/hr Q8HR IV 09/02/25 14:00 Family History: FHx: mental retardation G8 BROTHER, Onset:[place] Family history: Autoimmune disease (situation) G8 BROTHER, Onset:[place] (MENTAL RETARDATION) Family history: Diabetes mellitus G8 MOTHER Gout G8 FATHER (HISTORY OF GOUT) Review of Systems Diarrhea H&P Exam Vital Signs/I&O Vital Sign Date Time Temp Pulse Resp B/P (MAP) Pulse Ox O2 Delivery O2 Flow Rate FiO2 09/02/25 11:50 82 14 98 Room Air* 0 21 09/02/25 11:50 97.7 111/42 (65) 97.7 Intake and Output 09/01/25 09/02/25 19:00 07:00 Intake Total 1000 ml Balance 1000 ml Intake IV Total 1000 ml Physical Exam Morbid obese white male sitting upright not in overt distress Abdomen is soft Trace ankle nonpitting edema no Catherine catheter Labs/Diagnostic Data Labs/Diagnostic Data Laboratory Tests Test 09/02/25 13:03 09/02/25 11:49 09/02/25 09:22 09/02/25 07:35 Range/Units Potassium Level 4.0 3.8 3.5-5.1 mmol/L POC Glucose 195 H 70-106 mg/dl Lactic Acid Level 1.5 0.4-2.0 mmol/L Prothrombin Time 11.1 9.3-11.8 sec Prothrombin Time INR 1.05 0.9-1.15 Magnesium Level 1.4 L 1.6-2.6 mg/dL Test 09/02/25 05:24 09/02/25 04:27 09/02/25 03:45 Range/Units POC Glucose 184 H 70-106 mg/dl Stool Occult Blood Positive Negative Stool Occult Blood Sample #3 Negative White Blood Count 9.5 4.4-10.8 10^3/uL Red Blood Count 4.65 4.5-5.90 10^6/uL Hemoglobin 15.4 13.5-17.5 g/dL Hematocrit 44.7 41.0-53.0 % Mean Corpuscular Volume 96.1 80.0-100.0 fL Mean Corpuscular Hemoglobin 33.1 H 28.0-32.0 pg Mean Corpuscular Hemoglobin Concent 34.4 32.0-36.0 g/dL Red Cell Distribution Width 14.0 11.8-14.3 % Platelet Count 246 140-450 10^3/uL Mean Platelet Volume 8.7 6.9-10.8 fL Neutrophils (%) (Auto) 64.1 37.0-80.0 % Lymphocytes (%) (Auto) 21.4 10.0-50.0 % Monocytes (%) (Auto) 10.6 0.0-12.0 % Eosinophils (%) (Auto) 3.2 0.0-7.0 % Basophils (%) (Auto) 0.7 0.0-2.0 % Neutrophils # (Auto) 6.1 1.6-8.6 10 ^3/uL Lymphocytes # (Auto) 2.0 0.4-5.4 10 ^3/uL Monocytes # (Auto) 1.0 0-1.3 10 ^3/uL Eosinophils # (Auto) 0.3 0-0.8 10 ^3/uL Basophils # (Auto) 0.1 0-0.2 10 ^3/uL Nucleated Red Blood Cells 0.0 % Erythrocyte Sedimentation Rate 22 H 0-20 mm/hr Reticulocyte Count (auto) 1.03 0.5-1.5 % Sodium Level 139 136-145 mmol/L Potassium Level 5.5 H 3.5-5.1 mmol/L Chloride Level 103 98-107 mmol/L Carbon Dioxide Level 25 20-31 mmol/L Anion Gap 11 5-15 Blood Urea Nitrogen 30 H 9-23 mg/dL Creatinine 1.94 H 0.700-1.30 mg/dL Glomerular Filtration Rate Calc 39 >90 mL/min BUN/Creatinine Ratio 15.5 10.0-20.0 Serum Glucose 187 H 74-106 mg/dL Hemoglobin A1c 7.3 H <5.7 % A1C Calcium Level 10.6 H 8.7-10.4 mg/dL Iron Level 83 65-175 ug/dL Total Iron Binding Capacity 316 250-425 ug/dL Percent Iron Saturation 26.3 20-55 % Total Bilirubin 0.5 0.2-1.0 mg/dL Aspartate Amino Transferase (AST) 31 13-40 U/L Alanine Aminotransferase (ALT) 32 7-40 U/L Alkaline Phosphatase 57 46-116 U/L C-Reactive Protein High Sensitivity 0.41 <1.0 mg/dL Total Protein 8.0 5.7-8.2 g/dL Albumin 4.7 3.2-4.8 g/dL Lipase 226 H 12-53 U/L Vitamin D 25-Hydroxy 53.4 30.0-100 ng/mL Folic Acid 18.94 >5.38 ng/mL Microbiology Date/Time Source Procedure Growth Status 09/02/25 04:27 Stool Clostridium difficile Toxin Assay - Final Complete Assessment 60-year-old morbidly obese male with past medical history of diabetes and hypertension presents to the hospital complaining of diffuse diarrhea patient admitted with gastroenteritis Acute kidney injury hemodynamically mediated in setting of volume depletion agree with IV fluid hydration monitoring urinary output and electrolytes CT scan did not show any signs of obstruction or hydronephrosis recommend strict I&O Obtain urinalysis and urine protein creatinine ratio Chronic kidney disease mild to moderate stage 2/3 Avoid nephrotoxic drugs Avoid nonsteroidal anti-inflammatory drugs Strict Is&Os Gastroenteritis presumed to be viral rule out bacterial infection IV fluid, supportive care, cultures Gastroenterology Hyperkalemia medically managed Hypomagnesemia likely due to gastric losses IV replacement and p.o. as tolerated Hold lisinopril at this time due to hyperkalemia and kidney injury Low-potassium diet Replace electrolytes with p.o. Adhere to dietary recommendations in diabetes management Rest of care as per primary medical team care time 60 mins Plan discussed with: Patient STAN OTERO MD Sep 02, 2025 14:00
[2025-09-02 15:49] LABS: Urine Protein, UAD Negative (Negative)
[2025-09-02 16:02] LABS: Cannabinoid Screen, Urine Neg (NEGATIVE)
[2025-09-02 16:03] LABS: Amphetamine Screen, Urine Neg (NEGATIVE); Barbiturate Scree,Urine Neg (NEGATIVE); Benzodiazephine Screen, Urine Neg (NEGATIVE); Cocaine Screen, Urine Neg (NEGATIVE); Opiate Scree,Urine Neg (NEGATIVE); Phencyclidine Screen, Urine Neg (NEGATIVE)
[2025-09-02] MEDS: ATORVASTATIN 20 MG TAB PO SCH (21:56)
[2025-09-03] VITALS (12 sets, daily range): BP systolic 109–135; BP diastolic 64–80; PULSE 68–80; RESP 18–20; TEMP 97.2–98.4; O2SAT 94–100
[2025-09-03 06:29] LABS: Hematocrit 36.9 % (41.0-53.0); Hemoglobin 12.5 g/dL (13.5-17.5); Mean Corpuscular Hemoglobin 32.7 pg (28.0-32.0); Mean Corpuscular Volume 96.6 fL (80.0-100.0); Nucleated Red Blood Cells % 0.1 %
[2025-09-03 06:55] LABS: Alanine Aminotransferase 25 U/L (7-40); Albumin 3.9 g/dL (3.2-4.8); Alkaline Phosphatase 51 U/L (46-116); Anion Gap 11 (5-15); BUN/Creatinine Ratio 16.9 (10.0-20.0); Bilirubin, Total 0.5 mg/dL (0.2-1.0); Blood Urea Nitrogen 20 mg/dL (9-23); Calcium 8.9 mg/dL (8.7-10.4); Carbon Dioxide 22 mmol/L (20-31); Chloride 107 mmol/L (98-107); Potassium 4.4 mmol/L (3.5-5.1); Sodium 140 mmol/L (136-145); Total Protein 6.5 g/dL (5.7-8.2)
[2025-09-03 07:07] LABS: Glucose 150 mg/dL (74-106); Magnesium 1.5 mg/dL (1.6-2.6)
[2025-09-03 07:48] LABS: Lipase 398 U/L (12-53)
--- NOTE | 2025-09-03 08:43 | DVHPN2 ---
Progress Note Date Seen: Sep 03, 2025 Medical Necessity Reason Pt with a Central, PICC or Fol: No Subjective Patient reports: Feels better Objective vital signs Vital Sign Date Time Temp Pulse Resp B/P (MAP) Pulse Ox O2 Delivery O2 Flow Rate FiO2 09/03/25 06:54 100 Room Air* 0 21 09/03/25 05:00 98.0 71 18 112/71 (85) 98.0 Total Intake and Output 09/02/25 09/02/25 09/03/25 15:00 23:00 07:00 Intake Total 300 ml 600 ml 320 ml Balance 300 ml 600 ml 320 ml medications Current Medications Medications Dose Ordered Sig/Angi Route Start Time Stop Time Status Last Admin Dose Admin Diagnostic Test (Pha) 1 strip ACHS 09/02/25 11:30 09/03/25 06:33 1 STRIP Insulin Human Regular ACHS SC 09/02/25 11:30 09/03/25 06:33 3 UNITS Dextrose 50 ml UD PRN IV 09/02/25 07:15 Acetaminophen/ Hydrocodone Bitart 1 tab Q4HP PRN PO 09/02/25 07:15 Ondansetron HCl 4 mg Q4HP PRN IV 09/02/25 07:15 Acetaminophen 650 mg Q6HP PRN PO 09/02/25 07:15 Ciprofloxacin 200 ml @ 200 mls/hr Q8HR IV 09/02/25 08:45 09/03/25 07:31 200 MLS/HR Furosemide 40 mg DAILY IV 09/02/25 10:14 Gabapentin 300 mg BID PO 09/02/25 10:15 09/02/25 21:57 300 MG Metoprolol Tartrate 50 mg BID PO 09/02/25 10:00 09/02/25 21:57 50 MG Allopurinol 300 mg DAILY PO 09/02/25 10:00 09/02/25 10:12 300 MG Nifedipine 60 mg DAILY PO 09/02/25 10:00 09/02/25 10:12 60 MG Atorvastatin Calcium 40 mg HS PO 09/02/25 22:00 09/02/25 21:56 40 MG Patient Own Medication 1 tab DAILY PO 09/02/25 10:00 Patient Own Medication 1 tab DAILY PO 09/02/25 10:00 Metronidazole 100 ml @ 100 mls/hr Q8HR IV 09/02/25 14:00 09/03/25 05:55 100 MLS/HR Examination: GENERAL:Normal, CVS:Normal laboratory and microbiology Laboratory Tests 09/03/25 05:36 Test 09/03/25 05:36 Range/Units Serum Glucose 150 H 74-106 mg/dL Microbiology Date/Time Source Procedure Growth Status 09/02/25 04:27 Stool Clostridium difficile Toxin Assay - Final Complete Problem List/Assessment/Plan Problem List/Assessment/Plan 60-year-old morbidly obese male with past medical history of diabetes and hypertension presents to the hospital complaining of diffuse diarrhea patient admitted with gastroenteritis Acute kidney injury hemodynamically mediated in setting of volume depletion agree with IV fluid hydration monitoring urinary output and electrolytes CT scan did not show any signs of obstruction or hydronephrosis recommend strict I&O urinalysis unremarkable and urine protein creatinine ratio Christopher is resolving Chronic kidney disease mild to moderate stage 2/3 Avoid nephrotoxic drugs Avoid nonsteroidal anti-inflammatory drugs Strict Is&Os Gastroenteritis presumed to be viral rule out bacterial infection IV fluid, supportive care, cultures Gastroenterology Hyperkalemia medically managed Hypomagnesemia likely due to gastric losses IV replacement and p.o. as tolerated . replaced IV today Hold lisinopril at this time due to hyperkalemia and kidney injury Low-potassium diet Replace electrolytes with p.o. Adhere to dietary recommendations in diabetes management Rest of care as per primary medical team Plan discussed with: Patient My Orders My Orders Orders - STAN OTERO MD Procedure Category Date Status Time Communication Order ORDERS 09/02/25 Transmitted 13:54 Dietary Evaluation Review Recommendations by RD: Dietary education by RD Comments: 1) Add 45g CCHO restriction to cardiac diet 2) Encourage optimal PO intake 3) Refer to outpatient RD/CDCES for weight management 4) Follow-up with gastroenterology, cardiology, pulmonology, and nephrology 5) Continue to monitor I&O, labs, and skin integrity Expected Outcomes/Goals: 1) appetite and labs to improve 2) GI symptoms to resolve 3) gradual wt loss 4) f/u in 3-5 days Total Time (mins): 33 STAN OTERO MD Sep 03, 2025 08:43
[2025-09-03 09:32] LABS: Protein, Urine 7.7 mg/dL (1-14)
[2025-09-03] MEDS: MAGNESIUM SULFATE 1GM/100ML 100 ML IV SCH (10:39)
--- NOTE | 2025-09-03 13:40 | DVHPN2 ---
Reviewed: Care Plan, H&P, Labs, Medications Changes from previous H/P or p: No Changes General: Per HPI Gastrointestinal: Diarrhea Objective Vitals Vital Signs Date Time Temp Pulse Resp B/P (MAP) Pulse Ox O2 Delivery O2 Flow Rate FiO2 09/03/25 13:00 98.0 68 18 124/80 (95) 98 98.0 09/03/25 10:16 Room Air 0.0 09/03/25 10:16 21 Intake/Output Intake and Output 09/03/25 07:00 Intake Total 1220 ml Balance 1220 ml Intake Oral 220 ml IV Total 1000 ml # Voids 1 General Appearance: Alert, Oriented X3, Cooperative Cardiovascular: Regular rate, Normal S1, Normal S2 Medications Current Medications Medications Dose Ordered Sig/Angi Route Start Time Stop Time Status Last Admin Dose Admin Diagnostic Test (Pha) 1 strip ACHS 09/02/25 11:30 09/03/25 11:35 1 STRIP Insulin Human Regular ACHS SC 09/02/25 11:30 09/03/25 11:35 3 UNITS Dextrose 50 ml UD PRN IV 09/02/25 07:15 Acetaminophen/ Hydrocodone Bitart 1 tab Q4HP PRN PO 09/02/25 07:15 Ondansetron HCl 4 mg Q4HP PRN IV 09/02/25 07:15 Acetaminophen 650 mg Q6HP PRN PO 09/02/25 07:15 Ciprofloxacin 200 ml @ 200 mls/hr Q8HR IV 09/02/25 08:45 09/03/25 13:12 200 MLS/HR Furosemide 40 mg DAILY IV 09/02/25 10:14 Gabapentin 300 mg BID PO 09/02/25 10:15 09/03/25 10:23 300 MG Metoprolol Tartrate 50 mg BID PO 09/02/25 10:00 09/02/25 21:57 50 MG Allopurinol 300 mg DAILY PO 09/02/25 10:00 09/03/25 10:23 300 MG Nifedipine 60 mg DAILY PO 09/02/25 10:00 09/02/25 10:12 60 MG Atorvastatin Calcium 40 mg HS PO 09/02/25 22:00 09/02/25 21:56 40 MG Patient Own Medication 1 tab DAILY PO 09/02/25 10:00 Patient Own Medication 1 tab DAILY PO 09/02/25 10:00 Metronidazole 100 ml @ 100 mls/hr Q8HR IV 09/02/25 14:00 09/03/25 05:55 100 MLS/HR Laboratory Results Laboratory Tests 09/03/25 05:36 Chemistry Test 09/03/25 05:36 Albumin 3.9 g/dL (3.2-4.8) Calcium Level 8.9 mg/dL (8.7-10.4) Magnesium Level 1.5 mg/dL (1.6-2.6) L Total Protein 6.5 g/dL (5.7-8.2) Lipid panel Test 09/03/25 05:36 Lipase 398 U/L (12-53) H LFT Test 09/03/25 05:36 Alanine Aminotransferase (ALT) 25 U/L (7-40) Alkaline Phosphatase 51 U/L (46-116) Aspartate Amino Transferase (AST) 24 U/L (13-40) Total Bilirubin 0.5 mg/dL (0.2-1.0) Urinalysis Test 09/02/25 15:30 Urine Color Light-yellow (Yellow) Urine Clarity Clear (Clear) Urine pH 5.0 (5.0-9.0) Urine Specific [place] 1.015 (1.001-1.035) Urine Protein Negative (Negative) Urine Ketones Negative (Negative) Urine Blood Negative /uL (Negative) Urine Nitrite Negative (Negative) Urine Bilirubin Negative (Negative) Urine Urobilinogen Normal mg/dL (Negative) Urine Leukocyte Esterase Negative /uL (Negative) Urine RBC None seen /hpf (0 - 3) Urine Microscopic WBC < 1 /HPF (0-3) Urine Squamous Epithelial Cells Few /hpf (<5) Urine Bacteria None seen /hpf (None Seen) Urine Glucose 3+ mg/dL (Normal) H Microbiology Microbiology Date/Time Source Procedure Growth Status 09/02/25 04:27 Stool Clostridium difficile Toxin Assay - Final Complete Labs and/or images reviewed: Labs reviewed by me, Image(s) reviewed by me Assessment/Plan Assessment/Plan Talon Manning is a 60-year-old male past medical history of CKD, chronic diastolic heart failure, sleep apnea, diabetes type 2, morbid obesity, hypertension, hyperlipidemia, gout, genital warts, right ankle surgery, right knee surgery, hernia repair, appendectomy, tonsillectomy, and intestinal resection in 1968 who presents to the ED with diarrhea that started on August 10, 2025. Patient reports that last week it had been getting worse and has been noted to have green-like watery stools. Patient reports that because of the constant diarrhea, his rectum is raw. He states when he wipes he denies seeing any blood or seeing blood in his stools. Patient's Bryanna at the bedside. Patient reports that he recently went to [place] to visit his 's aunt. He also endorses eating spicy foods. He reports that he is compliant with his medications. He also reports that he was recently diagnosed with CKD and is supposed to have an appointment coming up on 09/27/[address] Wright. Patient also reports that he does not use oxygen at home however upon examination patient is currently on 2 L via nasal cannula. Patient reports that the oxygen helps him while he is waiting to use a CPAP machine. Patient also endorsed taking Lomotil which decreased the frequency for several days but since then he has been having about 10 episodes of loose watery stools and cramping sensation daily. Patient also reports that he lost 85 lbs in the last 1.5 years that was planned. Patient denies any recent trauma or injury, recent sick contacts, recent ingestion of spoiled food, chest pain, shortness breath, fever, chills, redness going cancer, dizziness, abdominal pain, nausea, vomiting, or urinary symptoms. Intractable diarrhea likely due to enterocolitis Rule out cdiff Positive stool OB rule out GIB Hyperkalemia Hyperlipasemia ? cystitis ? PNA MAYA likely prerenal Acute hypoxic respiratory failure on supplemental oxygen Hypomagnesemia History of CKD History of chronic diastolic heart failure History of sleep apnea on CPAP History of diabetes type 2 History of morbid obesity History of hypertension History of gout History of general worse History of right ankle surgery History of right knee surgery History of hernia repair History of appendectomy History of intestinal resection in 1968 History of tonsillectomy History of hyperlipidemia Plan discussed with: Patient My Orders Orders - KELLY HINOJOSA DO Procedure Category Date Status Time * Smoking Cessation CONS 09/03/25 Transmitted Consult 01:13 Date of Service: Sep 03, 2025 Billing Provider: KELLY HINOJOSA DO Common Visit Codes: [id number] INP/OBS CARE(HIGH) KELLY HINOJOSA DO Sep 03, 2025 13:40
[2025-09-04] VITALS (10 sets, daily range): BP systolic 125–143; BP diastolic 79–86; PULSE 64–89; RESP 16–20; TEMP 96.9–98.4; O2SAT 94–99
[2025-09-04 06:02] LABS: Hematocrit 37.3 % (41.0-53.0); Hemoglobin 12.8 g/dL (13.5-17.5); Mean Corpuscular Hemoglobin 33.2 pg (28.0-32.0); Mean Corpuscular Volume 96.3 fL (80.0-100.0); Nucleated Red Blood Cells % 0.1 %
[2025-09-04 06:06] LABS: Anion Gap 10 (5-15); Carbon Dioxide 24 mmol/L (20-31); Chloride 105 mmol/L (98-107); Potassium 4.2 mmol/L (3.5-5.1); Sodium 139 mmol/L (136-145)
[2025-09-04 06:07] LABS: Calcium 9.1 mg/dL (8.7-10.4)
[2025-09-04 06:12] LABS: BUN/Creatinine Ratio 14.0 (10.0-20.0); Blood Urea Nitrogen 16 mg/dL (9-23)
[2025-09-04 06:16] LABS: Glucose 173 mg/dL (74-106)
--- NOTE | 2025-09-04 10:30 | MEDREC ---
[facility] Intervention Section I [facility] Intervention: Dose optimization(PK/PD) (RECOMMENDED DOSE OF CIPROFLOXACIN IN INTRA-ABDOMINAL INFECTION / UTI 400 MG IV Q12H - CONSIDER CHANGING THE DOSE IF PNA IS RULED OUT OR SWITCHING TO CEFTRIAXONE) SHERLYN KONG PHARMACIST Sep 04, 2025 10:30
--- NOTE | 2025-09-04 12:08 | DVHPN2 ---
Progress Note Date Seen: Sep 04, 2025 Medical Necessity Reason Pt with a Central, PICC or Fol: No Subjective Patient reports: Feels better Objective vital signs Vital Sign Date Time Temp Pulse Resp B/P (MAP) Pulse Ox O2 Delivery O2 Flow Rate FiO2 09/04/25 10:38 143/83 09/04/25 10:37 67 09/04/25 10:10 95 Room Air 0.0 09/04/25 10:10 21 09/04/25 09:30 97.1 18 97.1 Total Intake and Output 09/03/25 09/03/25 09/04/25 15:00 23:00 07:00 Intake Total 400 ml 2464 ml 700 ml Output Total 900 ml Balance 400 ml 1564 ml 700 ml medications Current Medications Medications Dose Ordered Sig/Angi Route Start Time Stop Time Status Last Admin Dose Admin Diagnostic Test (Pha) 1 strip ACHS 09/02/25 11:30 09/04/25 11:33 1 STRIP Insulin Human Regular ACHS SC 09/02/25 11:30 09/04/25 11:41 2 UNITS Dextrose 50 ml UD PRN IV 09/02/25 07:15 Acetaminophen/ Hydrocodone Bitart 1 tab Q4HP PRN PO 09/02/25 07:15 Ondansetron HCl 4 mg Q4HP PRN IV 09/02/25 07:15 Acetaminophen 650 mg Q6HP PRN PO 09/02/25 07:15 Ciprofloxacin 200 ml @ 200 mls/hr Q8HR IV 09/02/25 08:45 09/04/25 06:26 200 MLS/HR Furosemide 40 mg DAILY IV 09/02/25 10:14 Gabapentin 300 mg BID PO 09/02/25 10:15 09/04/25 10:34 300 MG Metoprolol Tartrate 50 mg BID PO 09/02/25 10:00 09/03/25 22:06 50 MG Allopurinol 300 mg DAILY PO 09/02/25 10:00 09/04/25 10:33 300 MG Nifedipine 60 mg DAILY PO 09/02/25 10:00 09/04/25 10:34 60 MG Atorvastatin Calcium 40 mg HS PO 09/02/25 22:00 09/03/25 22:06 40 MG Patient Own Medication 1 tab DAILY PO 09/02/25 10:00 Patient Own Medication 1 tab DAILY PO 09/02/25 10:00 Metronidazole 100 ml @ 100 mls/hr Q8HR IV 09/02/25 14:00 09/04/25 05:17 100 MLS/HR Examination: GENERAL:Normal, CVS:Normal, SKIN:Normal laboratory and microbiology Laboratory Tests 09/04/25 04:32 Test 09/04/25 04:32 Range/Units Serum Glucose 173 H 74-106 mg/dL Microbiology Date/Time Source Procedure Growth Status 09/02/25 04:27 Stool Clostridium difficile Toxin Assay - Final Complete Problem List/Assessment/Plan Problem List/Assessment/Plan 60-year-old morbidly obese male with past medical history of diabetes and hypertension presents to the hospital complaining of diffuse diarrhea patient admitted with gastroenteritis Acute kidney injury hemodynamically mediated in setting of volume depletion agree with IV fluid hydration monitoring urinary output and electrolytes CT scan did not show any signs of obstruction or hydronephrosis recommend strict I&O urinalysis unremarkable and urine protein creatinine ratio Christopher is resolved Chronic kidney disease mild to moderate stage 2/3 Avoid nephrotoxic drugs Avoid nonsteroidal anti-inflammatory drugs Strict Is&Os Gastroenteritis presumed to be viral rule out bacterial infection IV fluid, supportive care, cultures Gastroenterology Hyperkalemia medically managed Hypomagnesemia likely due to gastric losses IV replacement and p.o. as tolerated . obtain Mg level today Hold lisinopril at this time due to hyperkalemia and kidney injury Low-potassium diet Replace electrolytes with p.o. Adhere to dietary recommendations in diabetes management Christopher has resolved, stable from renal standpoint, will sign off Plan discussed with: Patient Dietary Evaluation Review Recommendations by RD: Dietary education by RD Comments: 1) Add 45g CCHO restriction to cardiac diet 2) Encourage optimal PO intake 3) Refer to outpatient RD/CDCES for weight management 4) Follow-up with gastroenterology, cardiology, pulmonology, and nephrology 5) Continue to monitor I&O, labs, and skin integrity Expected Outcomes/Goals: 1) appetite and labs to improve 2) GI symptoms to resolve 3) gradual wt loss 4) f/u in 3-5 days Total Time (mins): 22 STAN OTERO MD Sep 04, 2025 12:08
--- NOTE | 2025-09-04 20:26 | DVHPN2 ---
Progress Note - Dictate Date Seen: Sep 04, 2025 Medical Necessity Reason Pt with a Central, PICC or Fol: No Subjective No new complaints, no further diarrhea recorded Stool for WBC is negative, stool for C diff and bacterial culture negative Stool for occult blood positive vital signs Vital Sign Date Time Temp Pulse Resp B/P (MAP) Pulse Ox O2 Delivery O2 Flow Rate FiO2 09/04/25 16:30 97.3 70 20 138/83 (101) 94 97.3 09/04/25 10:10 Room Air 0.0 09/04/25 10:10 21 Total Intake and Output 09/03/25 09/03/25 09/04/25 15:00 23:00 07:00 Intake Total 400 ml 2464 ml 700 ml Output Total 900 ml Balance 400 ml 1564 ml 700 ml medications Current Medications Medications Dose Ordered Sig/Angi Route Start Time Stop Time Status Last Admin Dose Admin Diagnostic Test (Pha) 1 strip ACHS 09/02/25 11:30 09/04/25 16:36 1 STRIP Insulin Human Regular ACHS SC 09/02/25 11:30 09/04/25 17:07 3 UNITS Dextrose 50 ml UD PRN IV 09/02/25 07:15 Acetaminophen/ Hydrocodone Bitart 1 tab Q4HP PRN PO 09/02/25 07:15 Ondansetron HCl 4 mg Q4HP PRN IV 09/02/25 07:15 Acetaminophen 650 mg Q6HP PRN PO 09/02/25 07:15 Ciprofloxacin 200 ml @ 200 mls/hr Q8HR IV 09/02/25 08:45 09/04/25 13:19 200 MLS/HR Furosemide 40 mg DAILY IV 09/02/25 10:14 Gabapentin 300 mg BID PO 09/02/25 10:15 09/04/25 10:34 300 MG Metoprolol Tartrate 50 mg BID PO 09/02/25 10:00 09/03/25 22:06 50 MG Allopurinol 300 mg DAILY PO 09/02/25 10:00 09/04/25 10:33 300 MG Nifedipine 60 mg DAILY PO 09/02/25 10:00 09/04/25 10:34 60 MG Atorvastatin Calcium 40 mg HS PO 09/02/25 22:00 09/03/25 22:06 40 MG Patient Own Medication 1 tab DAILY PO 09/02/25 10:00 Patient Own Medication 1 tab DAILY PO 09/02/25 10:00 Metronidazole 100 ml @ 100 mls/hr Q8HR IV 09/02/25 14:00 09/04/25 14:30 100 MLS/HR objective Examination: GENERAL:Normal, CVS:Normal, SKIN:Normal;morbid obesity laboratory and microbiology Laboratory Tests 09/04/25 04:32 Test 09/04/25 04:32 Range/Units Serum Glucose 173 H 74-106 mg/dL Problems(with codes): (1) MAYA (acute kidney injury) (2) Diarrhea (3) Cellulitis and abscess of leg, except foot (4) Morbid obesity (5) Diabetes mellitus (6) Pancreatitis Prognosis Plan Continue supportive care Patient is on IV Flagyl and IV Cipro Advance diet as tolerated Right upper quadrant ultrasound rule out gallstones Monitor labs including lipase Patient is currently on a cardiac diet Dietary Evaluation Review Recommendations by RD: Dietary education by RD Comments: 1) Add 45g CCHO restriction to cardiac diet 2) Encourage optimal PO intake 3) Refer to outpatient RD/[facility] for weight management 4) Follow-up with gastroenterology, cardiology, pulmonology, and nephrology 5) Continue to monitor I&O, labs, and skin integrity Expected Outcomes/Goals: 1) appetite and labs to improve 2) GI symptoms to resolve 3) gradual wt loss 4) f/u in 3-5 days Plan discussed with: Other (Anjali Ochoa) STEFAN VERDE MD Sep 04, 2025 20:26
--- NOTE | 2025-09-04 23:26 | DVH ---
INDICATION: pancreatitis TECHNIQUE: Multiple real-time sonographic images were obtained of the right upper quadrant. COMPARISON: None FINDINGS: The liver demonstrates diffusely increased echotexture without focal mass lesions. The live r measures 14.1 cm. Normal hepatopetal portal venous flow identified. No evidence of pleural effusio n or abdominal ascites. There is no intrahepatic or extrahepatic ductal dilatation. The common duct measures 0.3 cm. The gallbladder is without evidence of stone or sludge. The gallbladder wall measures 0.3 cm and is w ithin normal limits. Negative sonographic sánchez's sign. The right kidney measures 11.1 cm. The right kidney is normal in contour, size, and shape. The echoge nicity is normal. There is no hydronephrosis. The pancreas is not well visualized due to overlying bowel gas. IMPRESSION: 1. Hepatic steatosis. 2. No sonographic evidence of acute cholecystitis.
[2025-09-05] VITALS (8 sets, daily range): BP systolic 127–139; BP diastolic 69–82; PULSE 64–70; RESP 16–18; TEMP 96.9–98.2; O2SAT 95–99
[2025-09-05 06:42] LABS: Anion Gap 10 (5-15); Carbon Dioxide 23 mmol/L (20-31); Chloride 104 mmol/L (98-107); Potassium 4.2 mmol/L (3.5-5.1); Sodium 137 mmol/L (136-145)
[2025-09-05 06:43] LABS: Calcium 9.3 mg/dL (8.7-10.4)
[2025-09-05 06:48] LABS: BUN/Creatinine Ratio 12.9 (10.0-20.0); Blood Urea Nitrogen 13 mg/dL (9-23); Glucose 192 mg/dL (74-106); Magnesium 1.6 mg/dL (1.6-2.6)
[2025-09-05 07:36] LABS: Lipase 153 U/L (12-53)
--- NOTE | 2025-09-05 11:53 | DVHPN2 ---
Reviewed: Care Plan Changes from previous H/P or p: No Changes General: Per HPI Gastrointestinal: Diarrhea Objective Vitals Vital Signs Date Time Temp Pulse Resp B/P (MAP) Pulse Ox O2 Delivery O2 Flow Rate FiO2 09/05/25 10:25 70 139/82 09/05/25 10:00 96 Room Air 0.0 09/05/25 10:00 21 09/05/25 09:00 96.9 16 96.9 Intake/Output Intake and Output 09/05/25 06:59 Intake Total 2491 ml Output Total 700 ml Balance 1791 ml Intake Oral 1691 ml IV Total 800 ml Output Urine Total 700 ml # Voids 7 Medications Current Medications Medications Dose Ordered Sig/Angi Route Start Time Stop Time Status Last Admin Dose Admin Diagnostic Test (Pha) 1 strip ACHS 09/02/25 11:30 09/05/25 06:13 1 STRIP Insulin Human Regular ACHS SC 09/02/25 11:30 09/05/25 06:14 3 UNITS Dextrose 50 ml UD PRN IV 09/02/25 07:15 Acetaminophen/ Hydrocodone Bitart 1 tab Q4HP PRN PO 09/02/25 07:15 Ondansetron HCl 4 mg Q4HP PRN IV 09/02/25 07:15 Acetaminophen 650 mg Q6HP PRN PO 09/02/25 07:15 Ciprofloxacin 200 ml @ 200 mls/hr Q8HR IV 09/02/25 08:45 09/05/25 06:13 200 MLS/HR Furosemide 40 mg DAILY IV 09/02/25 10:14 Gabapentin 300 mg BID PO 09/02/25 10:15 09/05/25 10:23 300 MG Metoprolol Tartrate 50 mg BID PO 09/02/25 10:00 09/05/25 10:25 50 MG Allopurinol 300 mg DAILY PO 09/02/25 10:00 09/05/25 10:24 300 MG Nifedipine 60 mg DAILY PO 09/02/25 10:00 09/05/25 10:24 60 MG Atorvastatin Calcium 40 mg HS PO 09/02/25 22:00 09/04/25 21:25 40 MG Patient Own Medication 1 tab DAILY PO 09/02/25 10:00 Patient Own Medication 1 tab DAILY PO 09/02/25 10:00 Metronidazole 100 ml @ 100 mls/hr Q8HR IV 09/02/25 14:00 09/05/25 05:02 100 MLS/HR Laboratory Results Laboratory Tests 09/04/25 04:32 09/05/25 05:52 Chemistry Test 09/05/25 05:52 Calcium Level 9.3 mg/dL (8.7-10.4) Magnesium Level 1.6 mg/dL (1.6-2.6) Lipid panel Test 09/05/25 05:52 Lipase 153 U/L (12-53) H Urinalysis Test 09/02/25 15:30 09/03/25 15:30 Urine Color Light-yellow (Yellow) Urine Clarity Clear (Clear) Urine pH 5.0 (5.0-9.0) Urine Specific [place] 1.015 (1.001-1.035) Urine Protein Negative (Negative) Urine Ketones Negative (Negative) Urine Blood Negative /uL (Negative) Urine Nitrite Negative (Negative) Urine Bilirubin Negative (Negative) Urine Urobilinogen Normal mg/dL (Negative) Urine Leukocyte Esterase Negative /uL (Negative) Urine RBC None seen /hpf (0 - 3) Urine Microscopic WBC < 1 /HPF (0-3) Urine Squamous Epithelial Cells Few /hpf (<5) Urine Bacteria None seen /hpf (None Seen) Urine Glucose 3+ mg/dL (Normal) H Urine Creatinine 77.57 mg/dL (30.0-125.0) Urine Protein/Creatinine Ratio 0.10 Urine Total Protein 7.7 mg/dL (1-14) Microbiology Microbiology Date/Time Source Procedure Growth Status 09/02/25 04:27 Stool Clostridium difficile Toxin Assay - Final Complete Assessment/Plan Assessment/Plan Talon Manning is a 60-year-old male past medical history of CKD, chronic diastolic heart failure, sleep apnea, diabetes type 2, morbid obesity, hypertension, hyperlipidemia, gout, genital warts, right ankle surgery, right knee surgery, hernia repair, appendectomy, tonsillectomy, and intestinal resection in 1968 who presents to the ED with diarrhea that started on August 10, 2025. Patient reports that last week it had been getting worse and has been noted to have green-like watery stools. Patient reports that because of the constant diarrhea, his rectum is raw. He states when he wipes he denies seeing any blood or seeing blood in his stools. Patient's Bryanna at the bedside. Patient reports that he recently went to [place] to visit his 's aunt. He also endorses eating spicy foods. He reports that he is compliant with his medications. He also reports that he was recently diagnosed with CKD and is supposed to have an appointment coming up on 09/27/[address] Wrigth. Patient also reports that he does not use oxygen at home however upon examination patient is currently on 2 L via nasal cannula. Patient reports that the oxygen helps him while he is waiting to use a CPAP machine. Patient also endorsed taking Lomotil which decreased the frequency for several days but since then he has been having about 10 episodes of loose watery stools and cramping sensation daily. Patient also reports that he lost 85 lbs in the last 1.5 years that was planned. Patient denies any recent trauma or injury, recent sick contacts, recent ingestion of spoiled food, chest pain, shortness breath, fever, chills, redness going cancer, dizziness, abdominal pain, nausea, vomiting, or urinary symptoms. Intractable diarrhea likely due to entercocolitis Rule out cdiff Positive stool OB rule out GIB Hyperkalemia Hyperlipasemia ? cystitis ? PNA MAYA likely prerenal Acute hypoxic respiratory failure on supplemental oxygen Hypomagnesemia History of CKD History of chronic diastolic heart failure History of sleep apnea on CPAP History of diabetes type 2 History of morbid obesity History of hypertension History of gout History of general worse History of right ankle surgery History of right knee surgery History of hernia repair History of appendectomy History of intestinal resection in 1968 History of tonsillectomy History of hyperlipidemia Plan discussed with: Patient Date of Service: Sep 04, 2025 Billing Provider: KELLY HINOJOSA DO Common Visit Codes: [id number] INP/OBS CARE(HIGH) KELLY HINOJOSA DO Sep 05, 2025 11:53
--- NOTE | 2025-09-05 20:12 | DVHDS2 ---
Discharge Summary Date of Admission Sep 02, 2025 at 07:15 Date of Discharge: Sep 05, 2025 Labs/Diagnostic Data: Laboratory Results Test 09/05/25 12:16 09/05/25 05:52 09/04/25 04:32 09/03/25 15:30 POC Glucose 253 mg/dl (70-106) Sodium Level 137 mmol/L (136-145) Potassium Level 4.2 mmol/L (3.5-5.1) Chloride Level 104 mmol/L (98-107) Carbon Dioxide Level 23 mmol/L (20-31) Anion Gap 10 (5-15) Blood Urea Nitrogen 13 mg/dL (9-23) Creatinine 1.01 mg/dL (0.700-1.30) Glomerular Filtration Rate Calc 86 mL/min (>90) BUN/Creatinine Ratio 12.9 (10.0-20.0) Serum Glucose 192 mg/dL (74-106) Calcium Level 9.3 mg/dL (8.7-10.4) Magnesium Level 1.6 mg/dL (1.6-2.6) Lipase 153 U/L (12-53) White Blood Count 5.3 10^3/uL (4.4-10.8) Red Blood Count 3.87 10^6/uL (4.5-5.90) Hemoglobin 12.8 g/dL (13.5-17.5) Hematocrit 37.3 % (41.0-53.0) Mean Corpuscular Volume 96.3 fL (80.0-100.0) Mean Corpuscular Hemoglobin 33.2 pg (28.0-32.0) Mean Corpuscular Hemoglobin Concent 34.5 g/dL (32.0-36.0) Red Cell Distribution Width 13.9 % (11.8-14.3) Platelet Count 183 10^3/uL (140-450) Mean Platelet Volume 9.0 fL (6.9-10.8) Neutrophils (%) (Auto) 50.7 % (37.0-80.0) Lymphocytes (%) (Auto) 30.9 % (10.0-50.0) Monocytes (%) (Auto) 11.2 % (0.0-12.0) Eosinophils (%) (Auto) 6.6 % (0.0-7.0) Basophils (%) (Auto) 0.6 % (0.0-2.0) Neutrophils # (Auto) 2.7 10 ^3/uL (1.6-8.6) Lymphocytes # (Auto) 1.7 10 ^3/uL (0.4-5.4) Monocytes # (Auto) 0.6 10 ^3/uL (0-1.3) Eosinophils # (Auto) 0.3 10 ^3/uL (0-0.8) Basophils # (Auto) 0 10 ^3/uL (0-0.2) Nucleated Red Blood Cells 0.1 % Urine Creatinine 77.57 mg/dL (30.0-125.0) Urine Protein/Creatinine Ratio 0.10 Urine Total Protein 7.7 mg/dL (1-14) Test 09/03/25 05:36 09/02/25 15:30 09/02/25 09:22 09/02/25 07:35 Total Bilirubin 0.5 mg/dL (0.2-1.0) Aspartate Amino Transferase (AST) 24 U/L (13-40) Alanine Aminotransferase (ALT) 25 U/L (7-40) Alkaline Phosphatase 51 U/L (46-116) Total Protein 6.5 g/dL (5.7-8.2) Albumin 3.9 g/dL (3.2-4.8) Urine Color Light-yellow (Yellow) Urine Clarity Clear (Clear) Urine pH 5.0 (5.0-9.0) Urine Specific [place] 1.015 (1.001-1.035) Urine Protein Negative (Negative) Urine Ketones Negative (Negative) Urine Blood Negative /uL (Negative) Urine Nitrite Negative (Negative) Urine Bilirubin Negative (Negative) Urine Urobilinogen Normal mg/dL (Negative) Urine Leukocyte Esterase Negative /uL (Negative) Urine RBC None seen /hpf (0 - 3) Urine Microscopic WBC < 1 /HPF (0-3) Urine Squamous Epithelial Cells Few /hpf (<5) Urine Bacteria None seen /hpf (None Seen) Urine Glucose 3+ mg/dL (Normal) Urine Opiates Screen Neg (NEGATIVE) Urine Fentanyl Screen Pos (NEGATIVE) Urine Barbiturates Screen Neg (NEGATIVE) Urine Phencyclidine Screen Neg (NEGATIVE) Urine Amphetamines Screen Neg (NEGATIVE) Urine Benzodiazepines Screen Neg (NEGATIVE) Urine Cocaine Screen Neg (NEGATIVE) Urine Cannabinoids Screen Neg (NEGATIVE) Lactic Acid Level 1.5 mmol/L (0.4-2.0) Haptoglobin 216 mg/dL (29-370) Prothrombin Time 11.1 sec (9.3-11.8) Prothrombin Time INR 1.05 (0.9-1.15) Test 09/02/25 04:27 09/02/25 03:45 Stool Occult Blood Positive (Negative) Stool Occult Blood Sample #3 (Negative) Stool for White Cells None seen Erythrocyte Sedimentation Rate 22 mm/hr (0-20) Reticulocyte Count (auto) 1.03 % (0.5-1.5) Hemoglobin A1c 7.3 % A1C (<5.7) Iron Level 83 ug/dL (65-175) Total Iron Binding Capacity 316 ug/dL (250-425) Percent Iron Saturation 26.3 % (20-55) C-Reactive Protein High Sensitivity 0.41 mg/dL (<1.0) Vitamin D 25-Hydroxy 53.4 ng/mL (30.0-100) Folic Acid 18.94 ng/mL (>5.38) Other Laboratory Tests 09/05/25 05:52 09/04/25 04:32 Brief Hx & Hospital Course: Talon Manning is a 60-year-old male past medical history of CKD, chronic diastolic heart failure, sleep apnea, diabetes type 2, morbid obesity, hypertension, hyperlipidemia, gout, genital warts, right ankle surgery, right knee surgery, hernia repair, appendectomy, tonsillectomy, and intestinal resection in 1968 who presents to the ED with diarrhea that started on August 10, 2025. Patient reports that last week it had been getting worse and has been noted to have green-like watery stools. Patient reports that because of the constant diarrhea, his rectum is raw. He states when he wipes he denies seeing any blood or seeing blood in his stools. Patient's Bryanna at the bedside. Patient reports that he recently went to [place] to visit his 's aunt. He also endorses eating spicy foods. He reports that he is compliant with his medications. He also reports that he was recently diagnosed with CKD and is supposed to have an appointment coming up on 09/27/[address] Wright. Patient also reports that he does not use oxygen at home however upon examination patient is currently on 2 L via nasal cannula. Patient reports that the oxygen helps him while he is waiting to use a CPAP machine. Patient also endorsed taking Lomotil which decreased the frequency for several days but since then he has been having about 10 episodes of loose watery stools and cramping sensation daily. Patient also reports that he lost 85 lbs in the last 1.5 years that was planned. Patient denies any recent trauma or injury, recent sick contacts, recent ingestion of spoiled food, chest pain, shortness breath, fever, chills, redness going cancer, dizziness, abdominal pain, nausea, vomiting, or urinary symptoms. Intractable diarrhea likely due to enterocolitis Rule out cdiff Positive stool OB rule out GIB Hyperkalemia Hyperlipasemia ? cystitis ? PNA MAYA likely prerenal Acute hypoxic respiratory failure on supplemental oxygen Hypomagnesemia History of CKD History of chronic diastolic heart failure History of sleep apnea on CPAP History of diabetes type 2 History of morbid obesity History of hypertension History of gout History of general worse History of right ankle surgery History of right knee surgery History of hernia repair History of appendectomy History of intestinal resection in 1968 History of tonsillectomy History of hyperlipidemia discharged to home Condition at Discharge: Fair Final Diagnosis/Problems List see abve Discharge Disposition: Home Discharge Instruct/Medications Diet: Consistent carbohydrate Activity: No Restrictions, As Tolerated Follow Up/Referral: Follow up with PCP in 1-2 weeks Scheduled Allopurinol (Allopurinol), 1 TAB PO DAILY, (Reported) Aspirin (Aspir-Low), 81 MG PO DAILY, (Reported) Dapagliflozin Propanediol (Farxiga), 10 MG PO DAILY, (Reported) Fenofibrate (Fenofibrate), 1 TAB PO DAILY, (Reported) Furosemide (Furosemide), 40 MG PO DAILY, (Reported) Gabapentin (Gabapentin), 300 MG PO TID, (Reported) Glimepiride (Glimepiride), 1 TAB PO BID, (Reported) Lisinopril (Lisinopril), 2.5 MG PO DAILY, (Reported) Metoprolol Tartrate (Lopressor Tablet), 50 MG PO BID, (Reported) Nifedipine (Nifedipine Er), 60 MG PO DAILY, (Reported) Pioglitazone Hcl-Metformin Hcl (Actoplus Met), 1 TAB PO BID, (Reported) Simvastatin (Simvastatin), 40 MG PO DAILY, (Reported) Sitagliptin Phosphate (Januvia), 100 MG PO DAILY, (Reported) Terbinafine Hcl (Terbinafine Hcl), 1 TAB PO DAILY, (Reported) Miscellaneous Medications Insulin Glargine (Lantus), 100 UNIT SC, (Reported) Discharge Statement: "Patient was advised to return to the ER or call 911 if any headaches, dizziness, shortness of breath, chest pain, abdominal pain, bleeding, fevers, or worsening of medical condition. Patient was counseled about treatment plan, medications, possible side effects, patientverbalized understanding. All questions were answered to the best of my ability. This discharge took greater then 30 minutes in planning, reviewing documentation, counseling the patient, and discussing with other team members." ASSESSMENT ASSESSMENT Assessment Date of Service: Sep 05, 2025 Billing Provider: KELLY HINOJOSA DO Common Visit Codes: 18818-PPJ/OBS DISCH DAY >30min KELLY HINOJOSA DO Sep 05, 2025 20:12
== END 2025-09-05 17:18 | disposition home or self-care (01) | DRG 391 ==
LOC: ER 03:01 → OVERFLOW 07:15 → TELE-WESTW 23:49
PROVIDERS: ADMIT Internal Medicine; ATTEND Internal Medicine
DX: K52.9 Noninfective gastroenteritis and colitis, unspecified (principal); J18.9 Pneumonia, unspecified organism; J96.01 Acute respiratory failure with hypoxia; N17.9 Acute kidney failure, unspecified; I50.32 Chronic diastolic (congestive) heart failure; I13.0 Hypertensive heart and chronic kidney disease with heart failure and stage 1 through stage 4 chronic kidney disease, or unspecified chronic kidney disease; Z68.41 Body mass index [BMI] 40.0-44.9, adult; N18.9 Chronic kidney disease, unspecified; E66.01 Morbid (severe) obesity due to excess calories; E83.42 Hypomagnesemia; E11.22 Type 2 diabetes mellitus with diabetic chronic kidney disease; N30.90 Cystitis, unspecified without hematuria; E87.5 Hyperkalemia; F17.210 Nicotine dependence, cigarettes, uncomplicated; E86.9 Volume depletion, unspecified; M10.9 Gout, unspecified; E78.5 Hyperlipidemia, unspecified; Z90.49 Acquired absence of other specified parts of digestive tract; Z83.3 Family history of diabetes mellitus; Z82.5 Family history of asthma and other chronic lower respiratory diseases; Z81.0 Family history of intellectual disabilities; Z91.048 Other nonmedicinal substance allergy status; Z88.5 Allergy status to narcotic agent
CPT/HCPCS: 36415; 71045; 74176; 76705; 80048; 80053; 80307; 81001; 82270; 82306; 82570; 82746; 82962; 83010; 83036; 83540; 83550; 83605; 83690; 83735; 84132; 84156; 84425; 85025; 85045; 85048; 85610; 85652; 86141; 86850; 86880; 86900; 86901; 87045; 87427; 87493; 94640; G0378; J1815; J3490

== ENCOUNTER → 2025-09-07 | Outpatient (CLI) | payer BC ==
[~2025-09-07] MED LIST changes: +FENO160T PO; +TERB250T92 PO
== END | disposition home or self-care (01) ==
LOC: LAB 15:40
PROVIDERS: ATTEND Internal Medicine
DX: K85.90 Acute pancreatitis without necrosis or infection, unspecified (principal)
CPT/HCPCS: 36415; 83690

== ENCOUNTER 2025-09-14 06:53 | Outpatient (CLI) | payer BC ==
[2025-09-14 07:32] LABS: Alanine Aminotransferase 30 U/L (7-40); Albumin 4.3 g/dL (3.2-4.8); Alkaline Phosphatase 72 U/L (46-116); Anion Gap 11 (5-15); BUN/Creatinine Ratio 14.6 (10.0-20.0); Bilirubin, Total 0.4 mg/dL (0.2-1.0); Blood Urea Nitrogen 19 mg/dL (9-23); Calcium 9.8 mg/dL (8.7-10.4); Carbon Dioxide 25 mmol/L (20-31); Chloride 103 mmol/L (98-107); Potassium 4.4 mmol/L (3.5-5.1); Sodium 139 mmol/L (136-145); Total Protein 7.3 g/dL (5.7-8.2)
[2025-09-14 07:33] LABS: Glucose 242 mg/dL (74-106); Lipase 68 U/L (12-53)
== END 2025-09-14 17:00 | disposition home or self-care (01) ==
LOC: LAB 06:53
PROVIDERS: ATTEND Internal Medicine
DX: K85.90 Acute pancreatitis without necrosis or infection, unspecified (principal)
CPT/HCPCS: 36415; 80053; 83690

== ENCOUNTER 2025-10-17 06:46 | Outpatient (CLI) | payer BC ==
[2025-10-17 07:52] LABS: Alanine Aminotransferase 31 U/L (7-40); Albumin 4.4 g/dL (3.2-4.8); Alkaline Phosphatase 79 U/L (46-116); Anion Gap 8 (5-15); BUN/Creatinine Ratio 15.4 (10.0-20.0); Blood Urea Nitrogen 21 mg/dL (9-23); Calcium 10.1 mg/dL (8.7-10.4); Carbon Dioxide 25 mmol/L (20-31); Potassium 4.9 mmol/L (3.5-5.1); Sodium 141 mmol/L (136-145); Total Protein 7.4 g/dL (5.7-8.2)
[2025-10-17 07:53] LABS: Bilirubin, Total 0.3 mg/dL (0.2-1.0)
[2025-10-17 07:56] LABS: Chloride 108 mmol/L (98-107); Glucose 227 mg/dL (74-106)
[2025-10-17 09:24] LABS: Lipase 172 U/L (12-53)
== END 2025-10-17 17:00 | disposition home or self-care (01) ==
LOC: LAB 06:46
PROVIDERS: ATTEND Internal Medicine
DX: R10.9 Unspecified abdominal pain (principal)
CPT/HCPCS: 36415; 80053; 83690

== ENCOUNTER 2025-10-21 12:24 | Outpatient (CLI) | payer BC ==
--- NOTE | 2025-10-21 13:56 | DVHSR ---
APPROVED REPORT EXAM: Two-dimensional and M-mode echocardiogram with Doppler and color Doppler. INDICATION Pre-Op RISK FACTORS Obesity: Height: 68, Weight: 275 DIMENSIONS LVDd (3.8-5.7cm) LA (2D) 3.7 (1.9-4.0cm) Aortic Root 3.1 (2.0-3.7cm) LVDs (2.5-4.0cm) LA (MM) (1.9-4.0cm) Aortic Cusp Exc 1.8 (1.5-2.0cm) EF (%) 63.0 (55-70%) Rt. Atrium (1.9-4.0cm) Asc. Aorta cm Mitral Valve Mitral Mitral Stenosis E wave 1.21m/s MV Mean GR. mmHg A wave 1.21m/s MV Peak GR. mmHg E/A ratio 1.0 2D MVA cm2 DECEL Time 272ms PRESS 1/2 Time ms Aortic Valve Aortic Valve Aortic Stenosis V1 1.30m/s AO Mean GR. 5mmHg V2 1.47m/s AO Peak GR. 9mmHg LVOT Diameter 1.9 (1.8-2.4cm) Doppler VALERIE 2.51cm2 Pulmonic Valve V2 1.11m/s Tricuspid Valve RVSP 8mmHg Other Information Technically limited study due to body habitus. Conclusion Technically good study. Off axis views. Left atrial enlargement. Valves are normal. EF of 60% with normal RV function. Unremarkable Doppler evaluation. No pericardial effusion masses or vegetations.
== END 2025-10-21 17:00 | disposition home or self-care (01) ==
LOC: XYW 12:24
PROVIDERS: ATTEND Internal Medicine
DX: Z01.810 Encounter for preprocedural cardiovascular examination (principal)
CPT/HCPCS: 93306

== ENCOUNTER 2025-10-31 07:06 | Outpatient (CLI) | payer BC ==
[2025-10-31 08:18] LABS: Calcium 9.5 mg/dL (8.7-10.4); Potassium 4.7 mmol/L (3.5-5.1); Sodium 140 mmol/L (136-145)
[2025-10-31 08:19] LABS: Anion Gap 7 (5-15); Carbon Dioxide 25 mmol/L (20-31)
[2025-10-31 08:24] LABS: BUN/Creatinine Ratio 10.7 (10.0-20.0); Blood Urea Nitrogen 13 mg/dL (9-23)
[2025-10-31 08:26] LABS: Cholesterol 102 mg/dL (< 200)
[2025-10-31 08:34] LABS: Chloride 108 mmol/L (98-107); Glucose 187 mg/dL (74-106); HDL Cholesterol 35 mg/dL (40-59); Triglycerides 210 mg/dL (< 150)
== END 2025-10-31 17:00 | disposition home or self-care (01) ==
LOC: LAB 07:06
PROVIDERS: ATTEND Internal Medicine
DX: E11.9 Type 2 diabetes mellitus without complications (principal); E78.5 Hyperlipidemia, unspecified
CPT/HCPCS: 36415; 80048; 80061; 83036

== ENCOUNTER 2025-11-15 08:13 | Outpatient (CLI) | payer BC ==
[~2025-11-15] VITALS: Ht 172.7 cm; Wt 122.5 kg
[2025-11-15] MEDS ORDERED: ADENOSINE 90 MG/30 ML INJ IV ONE (08:46)
[2025-11-15] MEDS ORDERED: ADENOSINE 103 MG in GIVE UN-DILUTED 0 ML IV ONE (13:30)
== END 2025-11-15 17:00 | disposition home or self-care (01) ==
LOC: Rad HDHVI 08:13
PROVIDERS: ATTEND Internal Medicine Cardiovascular Disease
DX: I44.0 Atrioventricular block, first degree (principal); E78.00 Pure hypercholesterolemia, unspecified; E11.9 Type 2 diabetes mellitus without complications; F17.210 Nicotine dependence, cigarettes, uncomplicated; R94.31 Abnormal electrocardiogram [ECG] [EKG]; I10 Essential (primary) hypertension
CPT/HCPCS: 78452; A9500; J0153; 93017